=== PATIENT | male | born 1925 | race Caucasian/White ===

== ENCOUNTER 2016-12-11 10:27 | Emergency (ER) | payer OTHER, MEDICARE ==
[~2016-12-11] VITALS: Ht 180.3 cm; Wt 81.6 kg
--- NOTE | 2016-12-11 10:50 | ED PSYCHIATRIC COMPLAINT ---
See Addendum History of Present Illness General Chief Complaint: Psychiatric Related Complaint Stated Complaint: HALLUCINATIONS X 1 MONTH Source: patient, family Exam Limitations: no limitations Vital Signs & Intake/Output Vital Signs & Intake/Output Vital Signs Date Time Temp Pulse Resp B/P Pulse O2 O2 Flow FiO2 Ox Delivery Rate 12/12 0611 96.6 73 20 125/60 96 Room Air 12/12 0303 98.2 72 20 120/62 96 Room Air 12/11 2346 97.6 65 20 123/56 95 Room Air 12/11 2017 98.0 84 20 132/60 98 Room Air 12/11 1849 98 Room Air 12/11 1838 97.0 84 20 130/65 94 Room Air 12/11 1649 96.9 89 18 120/55 96 Room Air 12/11 1503 98.0 90 18 149/66 98 Room Air 12/11 1320 99.0 84 18 180/79 96 Room Air 12/11 1147 95 Room Air 12/11 1141 97.0 90 160/88 12/11 1033 98.0 81 18 154/80 97 Room Air Room Air ED Intake and Output 12/12 0000 12/11 1200 Intake Total Output Total Balance Patient 180 lb Weight Allergies Coded Allergies: No Known Allergies (12/11/16) Reconcile Medications Esomeprazole (Nexium) 40 MG CAPSULE.DR 1 CAP PO DAILY GI (Reported) Hydrochlorothiazide 25 MG TABLET 1 TAB PO DAILY WATER PILL (Reported) Metoprolol Succinate 50 MG TAB.ER.24H 1 TAB PO DAILY HEART (Reported) Quinapril HCl 20 MG TABLET 1 TAB PO DAILY UNKNOWN (Reported) Rivaroxaban (Xarelto) 20 MG TABLET 1 TAB PO DAILY BLOOD THINNER (Reported) with food Simvastatin (Simvastatin*) 80 MG TABLET 1 TAB PO DAILY CHOLESTEROL (Reported) Triage Note: TRIAGE: 89 Y/O MALE PRESENTS WITH BROTHER AND NIECE TODAY. BROTHER REPORTS PATIENT CALLED LAST NIGHT TO SLEEP OVER HIS HOUSE BECAUSE "ALL OF THE BEDS WERE OCCUPIED AT HIS RESIDENCE." * PATIENT LIVES AT HOME ALONE. FAMILY REPORTS PATIENT "HALLUCINATING" X 1 MONTH. DENIES SUICIDALITY OR HOMICIDALITY. REPORTS, "I'M A DEVOUT COWARD." Triage Nurses Notes Reviewed? yes HPI: 89-year-old male arrives through triage to room 13 with his family for evaluations of hallucinations for one month. Family reports that he has been saying that people are in his house and making too much noise or that he can't sleep so he is going to his brother's house because there are too many people here. Keturah denies any of this. He does seem to have some memory issues but denies depression, anxiety, SI, HI. He denies any physical complaints. He denies chest pain, shortness of breath, lightheadedness, dizziness or palpitations. He reports he does well at home and cooks and makes his own food. He said reports he has no problems dressing himself. Family has voiced concern of safety with him at home but will stay with him if needed. 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 (SISI JUDGE APRN) Past History Travel History Traveled to [place] past 21 day No Medical History Any Pertinent Medical History? see below for history Cardiovascular: AFIB, hypertension, hyperlipidemia, [place] ?2010 Surgical History Surgical History: unobtainable Psychosocial History What is your primary language Amharic Tobacco Use: Quit >30 days ago ETOH Use: occasional use Illicit Drug Use: denies illicit drug use Family History Hx Contributory? No (SISI JUDGE APRN) Review of Systems Review of Systems Constitutional: Reports: no symptoms. EENTM: Reports: no symptoms. Respiratory: Reports: no symptoms. Cardiovascular: Reports: no symptoms. GI: Reports: no symptoms. Genitourinary: Reports: no symptoms. Musculoskeletal: Reports: no symptoms. Skin: Reports: no symptoms. Neurological/Psychological: Reports: no symptoms. Hematologic/Endocrine: Reports: no symptoms. Immunologic/Allergic: Reports: no symptoms. All Other Systems: Reviewed and Negative (SISI JUDGE APRN) Physical Exam Physical Exam General Appearance: well developed/nourished, mild distress Head: atraumatic Eyes: Bilateral: PERRL, EOMI. Ears, Nose, Throat: normal pharynx, normal ENT inspection, hearing grossly normal Neck: normal inspection, supple Respiratory: normal breath sounds Cardiovascular: regular rate/rhythm, irregularly irregular Gastrointestinal: soft, non-tender Extremities: normal range of motion Neurological/Psychiatric: no motor/sensory deficits, awake, alert, normal mood/ affect, calm Appearance/Memory/Insight: appropriate appearance, denies illness Behavoir/Eye Contact/Speech: cooperative, normal speech Thoughts/Hallucinations: delusions, visual hallucinations Skin: intact, normal color, warm/dry SAD PERSONS Done? patient not suicidal (SISI JUDGE APRN) Progress Differential Diagnosis: dementia, electrolyte abnormality, paranoia Plan of Care: Orders Procedure Date/time Status Regular Diet 12/12 B Active Continuous Observation Monitor 12/11 125 Active ED CRISIS PSYCH CONSULT 12/11 125 Active CULTURE,URINE 12/11 104 Active URINE DRUG SCREEN FOR ER ONLY 12/11 1048 Complete URINALYSIS 12/11 1048 Complete TROPONIN LEVEL 12/11 1048 Complete ETHANOL 12/11 104 Complete COMPREHENSIVE METABOLIC PANEL 12/11 104 Complete CBC WITHOUT DIFFERENTIAL 12/11 1048 Complete EKG 12/11 104 Active Laboratory Tests 12/11/16 1123: Anion Gap 9, Estimated GFR > 60, BUN/Creatinine Ratio 34.3 H, Glucose 95, Calcium 9.3, Total Bilirubin 0.7, AST 25, ALT 37, Alkaline Phosphatase 95, Troponin I < 0.01, Total Protein 6.5, Albumin 3.6, Globulin 2.9, Albumin/ Globulin Ratio 1.2, CBC w Diff NO MAN DIFF REQ, RBC 4.02 L, MCV 99.5 H, MCH 33.0 H, RDW 14.4, MPV 7.7, Gran % 60.8, Lymphocytes % 30.0, Monocytes % 6.2, Eosinophils % 2.6, Basophils % 0.4, Absolute Granulocytes 4.0, Absolute Lymphocytes 1.9, Absolute Monocytes 0.4, Absolute Eosinophils 0.2, Absolute Basophils 0, PUBS MCHC 33.1, Serum Alcohol < 10.0 12/11/16 1112: Urine Opiates Screen < 100.00, Methadone Screen < 40, Barbiturate Screen < 60, Ur Phencyclidine Scrn < 6.00, Amphetamines Screen < 100, U Benzodiazepines Scrn < 85, Urine Cocaine Screen < 50, Urine Cannabis Screen < 5.00, Urine Color YEL, Urine Clarity CLEAR, Urine pH 6.0, Ur Specific [place] >= 1.030, Urine Protein NEG, Urine Ketones TRACE H, Urine Nitrite NEG, Urine Bilirubin NEG@ICTO, Urine Urobilinogen 0.2, Ur Leukocyte Esterase NEG, Ur Microscopic EXAM NOT REQUIRED, Urine Hemoglobin NEG, Urine Glucose NEG Microbiology 12/12 1111 URINE ROUT: Urine Culture - RECD Diagnostic Imaging: Viewed by Me: Radiology Read. Discussed w/RAD: Radiology Read. Initial ED EKG: AFIB Prior EKG: unchanged Hand-Off Endorsed To: YADIRA LAMB MD Endorsed Time: 2045 Pending: other (bed search) Comments: PATIENT: KETURAH OWEN PRESENT AGE: 89 PATIENT ACCOUNT NO: [id number] : [birth year] LOCATION: ER ORDERING PHYSICIAN: SISI JUDGE APRN SERVICE DATE: 12/11/16 EXAM TYPE: RAD - XRY-CHEST XRAY, PA AND LATERAL EXAMINATION: XR CHEST CLINICAL INFORMATION: 89-year-old man with pneumonia. COMPARISON: None TECHNIQUE: 2 views of the chest were obtained. FINDINGS: The lungs are relatively well expanded. Diffuse reticular opacities suggest chronic interstitial lung disease. No focal consolidation or overt pulmonary edema is appreciated. There is mild to moderate cardiomegaly. There are no pleural effusions. Degenerative changes are seen throughout the thoracic spine with flowing anterior marginal osteophytes. IMPRESSION: No convincing radiographic evidence of an acute cardiopulmonary process. DICTATED BY: HANH AQUINO MD DATE/TIME DICTATED:12/11/161305 COMPUTATIONAL THEORY SCIENTIST:ORLY DATE/TIME TRANSCRIBED:12/11/161305 CONFIDENTIAL, DO NOT COPY WITHOUT APPROPRIATE AUTHORIZATION. <Electronically signed in Other Vendor System> SIGNED BY: HANH AQUINO MD 12/11/16 1310 PATIENT: KETURAH OWEN PRESENT AGE: 89 PATIENT ACCOUNT NO: [id number] : [birth year] LOCATION: [facility] ORDERING PHYSICIAN: SISI JUDGE APRN SERVICE DATE: 12/11/16 EXAM TYPE: CAT - CT HEAD WO IV CONTRAST EXAMINATION: CT HEAD WITHOUT CONTRAST CLINICAL INFORMATION: 89-year-old woman with hallucinations. COMPARISON: None TECHNIQUE: Contiguous axial imaging was performed from the skull base to vertex without intravenous administration of contrast. DLP: 672 mGy-cm FINDINGS: No intracranial mass, hemorrhage, midline shift, or extra-axial collection is appreciated. 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 The ventricles and sulcal spaces are diffusely prominent due to chronic volume loss. The paranasal sinuses are well aerated. IMPRESSION: No acute intracranial pathology. DICTATED BY: HANH AQUINO MD DATE/TIME DICTATED:12/11/161208 COMPUTATIONAL THEORY SCIENTIST:ORLY DATE/TIME TRANSCRIBED:12/11/161208 CONFIDENTIAL, DO NOT COPY WITHOUT APPROPRIATE AUTHORIZATION. <Electronically signed in Other Vendor System> SIGNED BY: HANH AQUINO MD 12/11/16 1214 2:44pm- crisis doing a geriatric bed search for diagnosis of neurocognitive disorder with psychosis. Patient overall doing well with no physical complaints. (SISI JUDGE APRN) Comments: 12/12/2016 7:14:40 AM patient signed out to Dr. Koehler after an uneventful emergency department stay overnight. (ZAINAB CHE,YADIRA Darden) Departure Departure Time of Disposition: 2045 Disposition: STILL A PATIENT Condition: Stable Clinical Impression Primary Impression: Neurocognitive disorder Referrals: RACH CORTES MD (PCP/Family) Departure Forms: Customer Survey General Discharge Information (SISI JUDGE APRN)
[2016-12-11] MEDS ORDERED: METOPROLOL SUCC50 M2 PO (11:14)
[2016-12-11] MEDS ORDERED: SIMVASTATIN80 M1 PO (11:14)
[2016-12-11] MEDS ORDERED: NEXIUM40 M1 PO (11:14)
[2016-12-11] MEDS ORDERED: HYDROCHLOROTHIA25 M1 PO (11:15)
[2016-12-11] MEDS ORDERED: QUINAPRIL HCL20 M1 PO (11:15)
[2016-12-11] MEDS ORDERED: XARELTO20 M2 PO (11:16)
[2016-12-11 11:33] LABS: ABSOLUTE BASOPHIL COUNT 0 /CUMM (0.0-0.2); ABSOLUTE EOSINOPHIL COUNT 0.2 /CUMM (0.0-0.7); ABSOLUTE LYMPH COUNT 1.9 /CUMM (1.2-3.4); ABSOLUTE MONOCYTE COUNT 0.4 /CUMM (0.10-0.60); BASOPHIL % 0.4 % (0.0-2.0); EOSINOPHIL % 2.6 % (0-5); GRANULOCYTE % 60.8 % (42.2-75.2); MEAN CORPUSCULAR HGB CONC 33.1 G/DL (33.0-37.0); MEAN CORPUSCULAR VOLUME 99.5 FL (80.0-94.0); MEAN PLATELET VOLUME 7.7 FL (7.4-10.4); PLATELET COUNT 184 /CUMM (130-400); RBC DISTRIBUTION WIDTH 14.4 % (11.5-14.5); RED BLOOD CELL CT 4.02 /CUMM (4.70-6.10); WHITE BLOOD CELL COUNT 6.5 /CUMM (4.8-10.8)
--- NOTE | 2016-12-11 12:14 | CT SCAN REPORT ---
EXAMINATION: CT HEAD WITHOUT CONTRAST CLINICAL INFORMATION: 89-year-old woman with hallucinations. COMPARISON: None TECHNIQUE: Contiguous axial imaging was performed from the skull base to vertex without intravenous administration of contrast. DLP: 672 mGy-cm FINDINGS: No intracranial mass, hemorrhage, midline shift, or extra-axial collection is appreciated. 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 The ventricles and sulcal spaces are diffusely prominent due to chronic volume loss. The paranasal sinuses are well aerated. IMPRESSION: No acute intracranial pathology.
--- NOTE | 2016-12-11 13:10 | RADIOLOGY REPORT ---
EXAMINATION: XR CHEST CLINICAL INFORMATION: 89-year-old man with pneumonia. COMPARISON: None TECHNIQUE: 2 views of the chest were obtained. FINDINGS: The lungs are relatively well expanded. Diffuse reticular opacities suggest chronic interstitial lung disease. No focal consolidation or overt pulmonary edema is appreciated. There is mild to moderate cardiomegaly. There are no pleural effusions. Degenerative changes are seen throughout the thoracic spine with flowing anterior marginal osteophytes. IMPRESSION: No convincing radiographic evidence of an acute cardiopulmonary process.
--- NOTE | 2016-12-11 13:55 | ED PSYCH CRISIS CONSULTATION ---
See Addendum Crisis Consult Basic Assessment Date of Consult: 12/11/16 Responsible Person/Accompanied By: self/brother cecil and pat parker Insurance Authorization: Insurance #1: Insurance name: MEDICARE A Phone number: Policy number: [id number] Group number: Authorization number: ED Provider: Patient's ED Provider: SISI JUDGE APRN Primary Care Physician: Patient's PCP: RACH CORTES MD PCP's Current Psychiatrist: none Chief Complaint: Psychiatric Related Complaint Patient's Quote: I sometimes think i see people but i guess they are not there Present Illness: Pt is an 89 yo male presenting at [facility] ED this morning with reports of hallucinations starting about 4 weeks ago. Pt his accompanied by his brother Cecil and pat Parker who were able to provide collateral. Over the past month pt reporting to his brother that he is seeing people in his house/people are sleeping in his house/people are trying to break into his house. Brother reports these statements are becoming more frequent and stated that when pt drove to his house this morning at 7a to report same he contacted Pt PCP Dr Cortes who instructed to go to ED for evaluation. Pt lives by himself and infrequently has guests in his house. Pt has no reported psychiatric hx. Pt has no reported in home health aid. Pt has no hx of si/hi and no current si/hi. Pt denies depression or anxiety. Pt reports infrequent alcohol use and no substance abuse hx. Pt reports eating 2 meals per day but noted that he has been losing wt. Pt appears to not be giving proper attentions to adls. Pt is a and retired [employer]. Patient's Address: [address] [place] [address] Other Who Do You Live With? Patient/Self Family/Informants Interviewed: brother Cecil [phone] and pat Parker provided collateral. They expressed concern that pt is hallucinating and paranoid. They began to notice symptoms about 4 wks ago. Pt has no prior psychiatric history. Heike thinks he is staring to get dementia. they don't believe pt is a risk to harm self or others. Allergies - Coded Allergies: No Known Allergies (12/11/16) Current Medications - Scheduled Medications Esomeprazole (Nexium) 40 MG CAPSULE.DR 1 CAP PO DAILY GI #30 (Reported) Entered as Reported by PERI CHAKRABORTY on 12/11/16 1114 Hydrochlorothiazide 25 MG TABLET 1 TAB PO DAILY WATER PILL #30 (Reported) Entered as Reported by PERI CHAKRABORTY on 12/11/16 1115 Metoprolol Succinate 50 MG TAB.ER.24H 1 TAB PO DAILY HEART #30 (Reported) Entered as Reported by PERI CHAKRABORTY on 12/11/16 1114 Quinapril HCl 20 MG TABLET 1 TAB PO DAILY UNKNOWN #90 (Reported) Entered as Reported by PERI CHAKRABORTY on 12/11/16 1115 Rivaroxaban (Xarelto) 20 MG TABLET 1 TAB PO DAILY BLOOD THINNER #30 (Reported ) Entered as Reported by PERI CHAKRABORTY on 12/11/16 1116 Simvastatin (Simvastatin*) 80 MG TABLET 1 TAB PO DAILY CHOLESTEROL #30 ( Reported) Entered as Reported by PERI CHAKRABORTY on 12/11/16 1114 Laboratory Results: Laboratory Tests 12/11/16 1123: Anion Gap 9, Estimated GFR > 60, BUN/Creatinine Ratio 34.3 H, Glucose 95, Calcium 9.3, Total Bilirubin 0.7, AST 25, ALT 37, Alkaline Phosphatase 95, Troponin I < 0.01, Total Protein 6.5, Albumin 3.6, Globulin 2.9, Albumin/ Globulin Ratio 1.2, CBC w Diff NO MAN DIFF REQ, RBC 4.02 L, MCV 99.5 H, MCH 33.0 H, RDW 14.4, MPV 7.7, Gran % 60.8, Lymphocytes % 30.0, Monocytes % 6.2, Eosinophils % 2.6, Basophils % 0.4, Absolute Granulocytes 4.0, Absolute Lymphocytes 1.9, Absolute Monocytes 0.4, Absolute Eosinophils 0.2, Absolute Basophils 0, PUBS MCHC 33.1, Serum Alcohol < 10.0 12/11/16 1112: Urine Opiates Screen < 100.00, Methadone Screen < 40, Barbiturate Screen < 60, Ur Phencyclidine Scrn < 6.00, Amphetamines Screen < 100, U Benzodiazepines Scrn < 85, Urine Cocaine Screen < 50, Urine Cannabis Screen < 5.00, Urine Color YEL, Urine Clarity CLEAR, Urine pH 6.0, Ur Specific [place] >= 1.030, Urine Protein NEG, Urine Ketones TRACE H, Urine Nitrite NEG, Urine Bilirubin NEG@ICTO, Urine Urobilinogen 0.2, Ur Leukocyte Esterase NEG, Ur Microscopic EXAM NOT REQUIRED, Urine Hemoglobin NEG, Urine Glucose NEG Microbiology 12/11 1112 URINE ROUT: Urine Culture - RECD Past History Past Medical History Cardiovascular: hypertension, hyperlipidemia, [place] ?2009 Psychosocial History Strengths/Capabilities: lives independently/retired [employer] Psychiatric Treatment History Psych Treatment Psychiatric Treatment No Inpatient Treatment No Outpatient Treatment No Diagnosis by History: na Substance Use/Abuse History Drug Use/Abuse Substances Used/Abused No Substance Abuse Treatment Substance Abuse Treatment Past Substance Abuse [place] No Current Mental Status Mental Status Orientation: Confused Affect: WNL Speech: WNL Neuro-vegetative: Appetite Decreased, Concentration Poor, Sleep Disturbance Appearance Appearance- Dress/Hygiene: hospital scrubs, laying in bed during consult. friendly and engaged. Difficulty hearing. Need to speak into his right ear. Behaviors Thought Process: Disorganized Thought Content: Paranoid, Visual Hallucinations Memory: Impaired Insight: Fair SI/HI Risk Assessment Past Suicidal Ideation/Attempts No Current Suicidal Ideation/Att No Past Homicidal Ideation/Att: No Current Homicidal Ideation/Attempts No Degree of Intent: None Gravely Disabled: Inability Risk Factors: age (under 24/over 65), lives alone, male Lethality Ratin (mild) PTSD Checklist PTSD Done? patient declined ED Management Sitter: Yes Restraints: No DSM5/PS Stressors/Medical Prob Diagnosis' (DSM 5, Stressors, Medical): Major Neurocognitive d/o with psychosis poor attention to adls Current GAF: 25 Comments: reported onset of paranoia/hallucinations 1 month. No prior psychiatric history. Departure Disposition Psych Medical Clearance Date: 12/11/16 Medically Cleared at: 1245 Time Started: 1250 Time Ended: 1330 Psychiatrist Consulted: Mukul Swann MD Date Disposition Established: 12/11/16 Time Disposition Established: 1400 Plan for Disposition - Modality: Bed Search Rationale for Disposition: Increased behavioral disturbance, paranoia and hallucinations. Pt not able to properly care for self at this time. Pt placed on a PEC and informed that a bed search is required for an inpatient admission. Type of IP Admission: PEC Referrals RACH CORTES MD (PCP/Family)
--- NOTE | 2016-12-11 17:12 | ED PSYCHIATRIST/APRN CONSULT ---
Psychiatrist/SURVEYOR INSTRUMENT ASSISTANT ED Consult Assessment and Plan: Pt seen after speaking with crisis. Pt very hard of hearing. He was unsure about AVHs but acknowledging were occuring. He did note that he did think that someone was trying to break into his house on mulitple occasions. Very distressed by this. Feels started recently but could not specify. Denies depression or lisset. +AVHs, + delusions. Pt was malodorous. Described typical meal as microwave sweet potato (after speaking at length about the difference between sweet pototoes and yams). Spoke with brother and niece. They live about 20 mins away from pt. Last week, pt called at 3am and left a long rambling message about someone breaking in. This morning at 7am, pt came over and was adamant someone was breaking in. As they were concerned, brought him to the hospital. Pt was very upset about this. Pt has not allowed family in house for 8 years except for his brother. Brother stated very messy and dirty. Given worsening psychotic sx with bizzare behaviors over the past month as well as concern about pt's ability to life by himself, gravely disabled. PEC filled out on 12/11/2016 Called SHERRY at [facility] to notify that in ED and looking for bed. Pt does not get any psych care from the [facility] at this time.
--- NOTE | 2016-12-12 13:07 | ED PSYCHIATRIST/APRN CONSULT ---
Psychiatrist/ARTS AND CRAFTS INSTRUCTOR ED Consult Assessment and Plan: Pt seen for 24h eval. Pt notes that he is "relaxed" here. No stating he is unsure if actually heard anything, but even if he did, he did not act on it. Reminded him that he did call his brother and did show up to his brothers house distressed by the intruders. He is amenable to medication. MSE: younger than stated age, slightly malordorous, cooperative, good eye contact, very poor hearing as does not have his hearing aid in, mood "relaxed," affect joking at times, full range, appropriate, non-labile, tangenital thought process at times, denies SI or HI, ?AVHs of intruders at home, denies occuring here, does not appear to be responding to internal stimuli, I/J: limited PEC filled out on 12/11/2016 Awaiting Geropsych bed placement HO to restart home meds To add seroquel 12.5mg qhs for paranoia and AVHs
[2016-12-12 13:12] VITALS: BP 112/70
== END 2016-12-12 14:22 | disposition other institution (70) ==
LOC: ERH 10:27
PROVIDERS: Nurse Practitioner Family
DX: F01.51 Vascular dementia, unspecified severity, with behavioral disturbance (principal)
CPT/HCPCS: 80307; 81003; 87086; 93005; 93010; G0463; G0480

== ENCOUNTER 2017-01-28 20:30 | Inpatient (IN) | payer OTHER, MEDICARE ==
[~2017-01-28] VITALS: Ht 177.8 cm; Wt 69.4 kg
[~2017-01-28 20:30] MED LIST: HYDROCHLOROTHIA25 M1 PO; METOPROLOL SUCC50 M2 PO; NEXIUM40 M1 PO; QUINAPRIL HCL20 M1 PO; SIMVASTATIN80 M1 PO; XARELTO20 M2 PO
--- NOTE | 2017-01-28 20:55 | ED GENERAL ADULT ---
See Addendum History of Present Illness General Chief Complaint: Fever Stated Complaint: BIBA FEVER, CONGESTED COUGH Source: patient, old records Exam Limitations: dementia Vital Signs & Intake/Output Vital Signs & Intake/Output Vital Signs Date Time Temp Pulse Resp B/P B/P Pulse O2 O2 Flow FiO2 Mean Ox Delivery Rate 01/28 2355 99.2 71 18 114/70 01/28 2306 97.0 70 16 92/54 96 Room Air 01/28 2259 99.2 88 16 92/50 95 Room Air 01/28 2248 90 16 84/46 96 Room Air 01/28 2226 99.3 01/28 2155 100.9 01/28 2154 100.9 01/28 2130 Room Air 01/28 2125 101.7 01/28 2049 101.7 80 16 122/60 94 Room Air ED Intake and Output 01/29 0000 01/28 1200 Intake Total Output Total 10 Balance -10 Output, Urine 10 Patient 140 lb Weight Weight Estimated Measurement Method Allergies Coded Allergies: No Known Allergies (12/11/16) Reconcile Medications Donepezil HCl (Aricept) 5 MG TABLET 1 TAB PO QHS MEMORY (Reported) Hydrochlorothiazide 25 MG TABLET 1 TAB PO DAILY WATER PILL (Reported) Metoprolol Succinate 50 MG TAB.ER.24H 1 TAB PO DAILY HEART (Reported) Pantoprazole Sodium 40 MG TABLET.DR 1 TAB PO DAILY GERD (Reported) Quetiapine Fumarate (Seroquel) 50 MG TABLET 1 TAB PO QHS ANXIETY (Reported) Quinapril HCl 20 MG TABLET 1 TAB PO DAILY BP (Reported) Rivaroxaban (Xarelto) 20 MG TABLET 1 TAB PO DAILY BLOOD THINNER (Reported) with food Simvastatin (Simvastatin*) 80 MG TABLET 1 TAB PO QHS CHOLESTEROL (Reported) Trazodone HCl 50 MG TABLET 1 TAB PO QHS UNKNOWN (Reported) Triage Note: BIBA FROM [facility] FOR ?AMS, PT WITH BASELINE HX DEMENTIA/ALZHEIMERS. TEMP 101.7 AND STAFF REPORTED TO EMS THERE WAS NOTHING THEY COULD GIVE HIM. ARRIVES ALERT, ABLE TO CONVERSATE APPROPRIATELY WITH STAFF. DENIES PAIN. DENIES CP/SOB AND OFFERS NO COMPLAINTS. DENIES GI/ SYMPTOMS. CLEAN CATCH URINE OBTAINED ON ARRIVAL. SKIN WARM, DRY, INTACT. LUNG SOUNDS SLIGHTLY WHEEZY TO LEFT BASE. O2 SAT 94% RA Triage Nurses Notes Reviewed? yes Onset: Gradual Duration: constant Timing: single episode today Injury Environment: home Severity: moderate Severity Numbers: 5 HPI: Patient is a 89-year-old male with a past medical history of Alzheimer's dementia, GERD, hypertension, and is currently ON XARELTO FOR AFIB in which history is limited due to patient's dementia however EMS state that patient was brought in from [facility] for concerns of altered mental status and fever with unknown source. Patient is currently without complaints and denies any fevers headache blurred vision abdominal pain shortness of breath. Patient does state that he has a chronic intermittent cough (JOANIE LEO) Past History Travel History Traveled to [facility] past 21 day No Medical History Any Pertinent Medical History? see below for history Neurological: Alzheimer's disease, dementia EENT: NONE Cardiovascular: AFIB, hypertension, hyperlipidemia, [place] ?2009 Respiratory: NONE Gastrointestinal: NONE Hepatic: NONE Renal: NONE Musculoskeletal: NONE Psychiatric: NONE Endocrine: NONE Blood Disorders: NONE Cancer(s): NONE Surgical History Surgical History: unobtainable Psychosocial History Who do you live with Patient/Self What is your primary language [place] Tobacco Use: Never used Family History Hx Contributory? No (JOANIE LEO) Review of Systems Review of Systems Constitutional: Reports: see HPI, fever. EENTM: Reports: no symptoms. Respiratory: Reports: see HPI, cough. Cardiovascular: Reports: no symptoms. GI: Reports: no symptoms. Genitourinary: Reports: no symptoms. Musculoskeletal: Reports: no symptoms. Skin: Reports: no symptoms. Neurological/Psychological: Reports: no symptoms. Hematologic/Endocrine: Reports: no symptoms. Immunologic/Allergic: Reports: no symptoms. All Other Systems: Reviewed and Negative (JOANIE LEO) Physical Exam Physical Exam General Appearance: no apparent distress, alert, comfortable Comments: HEENT: Normal EENT exam, extraocular motion intact, no nystagmus. Pupils equally round and reactive to light and accommodation. Nose is atraumatic. External auditory canal and Tympanic membranes clear. Pharynx normal. No swelling or edema. Neck: Supple, no lymphadenopathy, normal range of motion without pain or tenderness Back: Nontender, no CVA tenderness. Cardiovascular: IRRegular rate no murmurs rubs or gallops, normal JVP Respiratory: Chest nontender. No respiratory distress. Bilateral clear lungs to auscultation Abdomen: Soft, nontender nondistended, no appreciable organomegaly. Normal bowel sounds. No ascites Extremity: No edema, no calf tenderness to palpation, normal and equal pulses. Neuro: Alert, motor sensory normal, Skin: No appreciable rash on exposed skin, skin is warm and dry. Psych: Mood and affect is normal, memory and judgment is normal. Core Measures ACS in differential dx? No CVA/TIA Diagnosis: No Severe Sepsis Present: No Septic Shock Present: No (MARIA ISABEL CURRY,JOANIE) Progress Differential Diagnoses I considered the following diagnoses in my evaluation of the patient: [Sepsis, pneumonia, URI, myocardial infarction, cellulitis, PTX, PE,UTI,CVA ] Plan of Care: Orders Procedure Date/time Status LACTIC ACID 01/29 10 Active EKG 01/28 2118 Active Add-on Test (ER Only) 01/28 2110 Active BLOOD CULTURE 01/28 2110 Active TROPONIN LEVEL 01/28 2110 Complete LACTIC ACID 01/28 2110 Complete COMPREHENSIVE METABOLIC PANEL 01/28 2110 Complete CBC WITHOUT DIFFERENTIAL 01/28 2110 Complete CULTURE,URINE 01/29 2048 Active URINALYSIS 01/29 2048 Complete Current Medications Sig/Dora Start time Last Medication Dose Stop Time Status Admin Azithromycin 500 MG DAILY 01/29 1000 UNVr (Zithromax) Sodium Chloride 250 ML (Normal Saline 0.9%) Laboratory Tests 01/28/172114: Anion Gap 7, Estimated GFR > 60, BUN/Creatinine Ratio 25.0, Glucose 109 H, Lactic Acid 1.2, Calcium 8.4, Total Bilirubin 0.8, AST 24, ALT 40, Alkaline Phosphatase 86, Troponin I 0.01, Total Protein 6.1 L, Albumin 3.5, Globulin 2.6 , Albumin/Globulin Ratio 1.3, CBC w Diff NO MAN DIFF REQ, RBC 3.96 L, MCV 98.6 H, MCH 33.3 H, RDW 14.0, MPV 8.1, Gran % 78.1 H, Lymphocytes % 14.6 L, Monocytes % 6.7, Eosinophils % 0.1, Basophils % 0.5, Absolute Granulocytes 5.4, Absolute Lymphocytes 1.0 L, Absolute Monocytes 0.5, Absolute Eosinophils 0, Absolute Basophils 0, PUBS MCHC 33.8 01/28/172047: Urine Color YEL, Urine Clarity CLEAR, Urine pH 6.0, Ur Specific [place] >= 1.030 , Urine Protein 100 H, Urine Ketones NEG, Urine Nitrite NEG, Urine Bilirubin NEG, Urine Urobilinogen 1.0, Ur Leukocyte Esterase NEG, Ur Microscopic SEDIMENT EXAMINED, Urine RBC RARE, Ur Epithelial Cells RARE, Urine Bacteria MANY H, Urine Hemoglobin SMALL H, Urine Glucose NEG Microbiology 01/28 2125 BLOOD: Blood Culture - RECD 01/28 2115 BLOOD: Blood Culture - RECD 01/29 2048 URINE ROUT: Urine Culture - RECD Patient understood examination has unremarkable Patient had nontender abdomen clear lungs to auscultation and was alert and oriented at baseline. Patient followed all commands and shows no neurovascular deficit. Patient had resolution of fever chest x-ray is unremarkable urine does show concerns of urinary tract infection It was noted to be the patient became hypotensive prior to discharge AND NOW WILL IV liters of fluid resuscitation will be ordered. Dr. Cortes was paged for concerns of admission. Discussed hand up with Dr. SALAZAR who will take over patient's care (MARIA ISABEL CURRY,JOANIE) Diagnostic Imaging: Viewed by Me: Radiology Read. Radiology Impression: no acute abnormality Initial ED EKG: AFIB (81 BPM) Hand-Off Endorsed To: YADIRA SALAZAR DO ([facility]) Endorsed Time: 2345 Pending: other (ADMISSION) Comments: PATIENT: KETURAH OWEN PRESENT AGE: 89 PATIENT ACCOUNT NO: [id number] : [birth year] LOCATION: [facility] ORDERING PHYSICIAN: JOANIE CURRY SERVICE DATE: 01/28/17 EXAM TYPE: RAD - XRY-CHEST XRAY, PA AND LATERAL EXAMINATION: CHEST 2 VIEWS CLINICAL INFORMATION: Cough, fever. COMPARISON: 12/11/2016. TECHNIQUE: PA and lateral views of the chest were obtained. FINDINGS: The cardiac silhouette is not enlarged. The mediastinal and hilar contours are unremarkable. There are neither pleural effusions nor pneumothoraces. There are no consolidations. The lungs are hyperinflated. The osseous structures are unremarkable. IMPRESSION: No evidence for acute disease. Lung hyperinflation. DICTATED BY: JOSEPH MENDES MD DATE/TIME DICTATED:01/28/172216 COMMUNITY HEALTH ADVISOR:ORLY (JOANIE LEO) Differential Diagnoses I considered the following diagnoses in my evaluation of the patient: (YADIRA SALAZAR DO) Departure Departure Disposition: STILL A PATIENT Condition: Stable Clinical Impression Primary Impression: UTI (urinary tract infection) Secondary Impressions: Fever, Hypotension Referrals: RACH CORTES MD (PCP/Family) Departure Forms: Customer Survey General Discharge Information Admission Note Documentation of Exam: Documentation of any treatments & extenuating circumstances including Concerns Regarding Discharge (functional status, medication knowledge or non-compliance, living conditions, etc.) that warrant an admission rather than observation: [ Patient requires IV fluids, IV antibiotics, repeat labs, blood cultures and urine culture currently pending.] (JOANIE LEO) Admission Note Documentation of Exam: Documentation of any treatments & extenuating circumstances including Concerns Regarding Discharge (functional status, medication knowledge or non-compliance, living conditions, etc.) that warrant an admission rather than observation: 01/29/17 12:50 AM The patient was signed out to me by Joanie Pinzon to admit the patient. I have seen and personally examined the patient is a 89-year-old male who comes from group home for cough and congestion and altered mental status. His chest x- ray was unremarkable he does have scattered rhonchi. His urinalysis showed many bacteria. White blood cell count was normal. Lactic acid level was negative. He was for discharge but dropped his blood pressure. He received IV fluids and his blood pressures improving. He is being admitted to the hospital to exclude the diagnosis of sepsis. He received IV antibiotics. (YADIRA SALAZAR DO) Critical Care Note Critical Care Note Critical Care Time: 30-74 min (JOANIE LEO)
[2017-01-28] MEDS ORDERED: TRAZODONE HCL50 M1 PO (21:19)
[2017-01-28] MEDS ORDERED: ARICEPT5 M1 PO (21:19)
[2017-01-28] MEDS ORDERED: PANTOPRAZOLE SO40 M1 PO (21:22)
[2017-01-28] MEDS ORDERED: SEROQUEL50 M1 PO (21:23)
[2017-01-28 21:42] LABS: ABSOLUTE BASOPHIL COUNT 0 /CUMM (0.0-0.2); ABSOLUTE EOSINOPHIL COUNT 0 /CUMM (0.0-0.7); ABSOLUTE GRANULOCYTE CT 5.4 /CUMM (1.4-6.5); ABSOLUTE MONOCYTE COUNT 0.5 /CUMM (0.10-0.60); BASOPHIL % 0.5 % (0.0-2.0); EOSINOPHIL % 0.1 % (0-5); GRANULOCYTE % 78.1 % (42.2-75.2); HEMATOCRIT 39.1 % (42-52); MEAN CORPUSCULAR HGB 33.3 PG (27.0-31.0); MEAN CORPUSCULAR HGB CONC 33.8 G/DL (33.0-37.0); MEAN CORPUSCULAR VOLUME 98.6 FL (80.0-94.0); MEAN PLATELET VOLUME 8.1 FL (7.4-10.4); PLATELET COUNT 149 /CUMM (130-400); RED BLOOD CELL CT 3.96 /CUMM (4.70-6.10); WHITE BLOOD CELL COUNT 6.9 /CUMM (4.8-10.8)
--- NOTE | 2017-01-28 22:21 | RADIOLOGY REPORT ---
EXAMINATION: CHEST 2 VIEWS CLINICAL INFORMATION: Cough, fever. COMPARISON: 12/11/2016. TECHNIQUE: PA and lateral views of the chest were obtained. FINDINGS: The cardiac silhouette is not enlarged. The mediastinal and hilar contours are unremarkable. There are neither pleural effusions nor pneumothoraces. There are no consolidations. The lungs are hyperinflated. The osseous structures are unremarkable. IMPRESSION: No evidence for acute disease. Lung hyperinflation.
--- NOTE | 2017-01-29 01:09 | History & Physical ---
RAFA CHE,ROSETTA 01/29/17 0100: General Information and HPI MD Statement: I have seen and personally examined KETURAH SAUCEDA and documented this H&P. The patient is a 89 year old M who presented with a patient stated chief complaint of []. Source of Information: patient, old records Exam Limitations: dementia History of Present Illness: Patient is an 89-year-old male, BIBA from [facility] with history of altered mental status. According to the ED document the staff from the facility told that patient was having temperature of 101.7 and was not able to take anything orally.He developed hypotension in the emergency department, and then he was given IV fluids , and decided to be admitted. Patient was oriented to time, place and person, according to him, his visiting nurse came on tuesday and he was relatively alright. Later she found something in his chest, so CXR was done. She denies fever, chills, nausea, vomiting, chest pain, abdominal pain, dysuria. He also claims that he had an episode of diarrhea couple of days ago. He also felt occasional dizziness. Personal history -he is dependent on most of his daily activity. He smoked since the age of teenage, and quit 10 years ago. He occasionally drinks alcohol. Allergies NKDA Past medical history - Alzheimer's dementia, hypertension, hyperlipidemia, history of [place] (2009), atrial fibrillation on Xarelto , GERD, presbycusis Allergies/Medications Allergies: Coded Allergies: No Known Allergies (12/11/16) Home Med list Donepezil HCl (Aricept) 5 MG TABLET 1 TAB PO AT BEDTIME MEMORY (Reported) Hydrochlorothiazide 25 MG TABLET 1 TAB PO DAILY WATER PILL (Reported) Metoprolol Succinate 50 MG TAB.ER.24H 1 TAB PO DAILY HEART (Reported) Pantoprazole Sodium 40 MG TABLET.DR 1 TAB PO DAILY GERD (Reported) Quetiapine Fumarate (Seroquel) 50 MG TABLET 1 TAB PO AT BEDTIME ANXIETY ( Reported) Quinapril HCl 20 MG TABLET 1 TAB PO DAILY BP (Reported) Rivaroxaban (Xarelto) 20 MG TABLET 1 TAB PO DAILY BLOOD THINNER (Reported) with food Simvastatin (Simvastatin*) 80 MG TABLET 1 TAB PO AT BEDTIME CHOLESTEROL ( Reported) Trazodone HCl 50 MG TABLET 1 TAB PO AT BEDTIME antidepressant (Reported) Past History Travel History Traveled to [place] past 21 day No Medical History Neurological: Alzheimer's disease, dementia EENT: NONE Cardiovascular: AFIB, hypertension, hyperlipidemia, [place] ?2010 Respiratory: NONE Gastrointestinal: NONE Hepatic: NONE Renal: NONE Musculoskeletal: NONE Psychiatric: NONE Endocrine: NONE Blood Disorders: NONE Cancer(s): NONE Surgical History Surgical History: unobtainable Review of Systems Review of Systems Constitutional: Denies: fever, weakness. Cardiovascular: Denies: no symptoms. Respiratory: Denies: cough, short of breath, wheezing. GI: Denies: abdominal pain, diarrhea, nausea. Genitourinary: Denies: discharge, dysuria, frequency, hematuria. Comments cannt comment as patient is hard of hearing and baseline dementia Exam & Diagnostic Data Last 24 Hrs of Vital Signs/I&O Vital Signs Date Time Temp Pulse Resp B/P B/P Pulse O2 O2 Flow FiO2 Mean Ox Delivery Rate 01/29 0235 70 124/74 01/28 2355 99.2 71 18 114/70 01/28 2306 97.0 70 16 92/54 96 Room Air 01/28 2259 99.2 88 16 92/50 95 Room Air 01/28 2248 90 16 84/46 96 Room Air 01/28 2226 99.3 01/28 2155 100.9 01/28 2154 100.9 01/28 2130 Room Air 01/28 2125 101.7 01/28 2049 101.7 80 16 122/60 94 Room Air Intake & Output 01/29 0800 01/29 0000 01/28 1600 Intake Total Output Total 400 10 Balance -400 -10 Output, Urine 400 10 Patient 69.4 kg 63.503 kg Weight Weight Estimated Measurement Method Physical Exam General Appearance Alert, Oriented X3, Cooperative, No Acute Distress Skin he has redness and discoloration of skin of scrotum with ? areas of folliculitis Cardiovascular irregular Lungs bilateral wheezing in upper part of chest Abdomen Soft, No Tenderness Neurological Normal Speech, Normal Tone, Sensation Intact, hard of hearing, pupils are ? pin point but reactive Extremities No Clubbing, No Cyanosis, No Edema, Normal Pulses Vascular Normal Pulses Last 24 Hrs of Labs/William: Laboratory Tests 01/29/17 0059: Lactic Acid 0.8 01/28/172114: Anion Gap 7, Estimated GFR > 60, BUN/Creatinine Ratio 25.0, Glucose 109 H, Lactic Acid 1.2, Calcium 8.4, Total Bilirubin 0.8, AST 24, ALT 40, Alkaline Phosphatase 86, Troponin I 0.01, Total Protein 6.1 L, Albumin 3.5, Globulin 2.6 , Albumin/Globulin Ratio 1.3, Vitamin B12 Pending, Folate Pending, TSH Pending, Free T4 Pending, CBC w Diff NO MAN DIFF REQ, RBC 3.96 L, MCV 98.6 H, MCH 33.3 H, RDW 14.0, MPV 8.1, Gran % 78.1 H, Lymphocytes % 14.6 L, Monocytes % 6.7, Eosinophils % 0.1, Basophils % 0.5, Absolute Granulocytes 5.4, Absolute Lymphocytes 1.0 L, Absolute Monocytes 0.5, Absolute Eosinophils 0, Absolute Basophils 0, PUBS MCHC 33.8 01/28/172047: Urine Color YEL, Urine Clarity CLEAR, Urine pH 6.0, Ur Specific [place] >= 1.030 , Urine Protein 100 H, Urine Ketones NEG, Urine Nitrite NEG, Urine Bilirubin NEG, Urine Urobilinogen 1.0, Ur Leukocyte Esterase NEG, Ur Microscopic SEDIMENT EXAMINED, Urine RBC RARE, Ur Epithelial Cells RARE, Urine Bacteria MANY H, Urine Hemoglobin SMALL H, Urine Glucose NEG Microbiology 01/28 2125 BLOOD: Blood Culture - RECD 01/28 2115 BLOOD: Blood Culture - RECD 01/29 2048 URINE ROUT: Legionella Antigen - RES 01/29 2048 URINE ROUT: Urine Culture - RES Diagnostic Data EKG Results Hr -81, Afib CXR Results CXR - no any acute cardiopulmonary involvement Assessment/Plan Assessment: Patient is an 89-year-old male, BIBA from [facility] with history of altered mental status. According to the ED document the staff from the facility told that patient was having temperature of 101.7 and was not able to take anything orally. He developed hypotension in the emergency department, and was given IV fluids. Vital signs at the time of admission -temperature 101.7, pulse 80, respiratory rate 16, blood pressure 122/60, SPO2 94% on room air Pertinent labs -Hb -13.2,Hct-39.1 CXR - no any acute cardiopulmonary involvement Plan - Altered mental status under evaluation * We do not have complete history. Most of the history is dependence on ED records and the patient.We will call the family and facility tomorrow to get the complete information. * Patient passed bedside swallow evaluation, we will consider formal evaluation.On examination, patient is having wheezes especially in the upper 1/3 of the chest * Altered mental status, can be due to fever * We will follow TSH, vitamin B12, folic acid, electrolytes Fever under evaluation * We will send all cultures * It can be secondary to aspiration pneumonitis. We will confirm it by formal swallow evaluation and repeating the chest x-ray. * Patient has folliculitis over the skin of the scrotum. It can be site of infection too. Alzheimer's dementia -depression * We will continue donepezil, Quetiapine, trazodone. Atrial fibrillation with controlled ventricular rate * We will continue tablet Xarelto 20 milligrams daily * We will watch for the bleeding * We will reconsider this medication, as patient has tendency to fall Hypertension * Withhold hydrochlorothiazide, metoprolol, quinapril Hyperlipidemia * We will continue atorvastatin Diet -patient passed bedside swallow evaluation, still we will consider formal swallow evaluation DVT prophylaxis-ALP S/heparin CODE STATUS-FC As Ranked By This Provider Problem List: 1. Alzheimer's dementia 2. Depression 3. Hypertension 4. Hyperlipidemia 5. Fever 6. Hyponatremia 7. Atrial fibrillation Core Measures/Miscellaneous Acute Coronary Syndrome ACS Diagnosis: No Cerebrovascular Accident CVA/TIA Diagnosis: No Congestive Heart Failure CHF Diagnosis: No Venous Thromboembolism VTE Risk Factors: Age > 40 No [facility] VTE prophylaxis d/t: No contraindications No VTE Pharm Prophylaxis d/t: No contraindications VTE Diagnosis: No VTE Type: NONE VTE Confirmed by (Test): NONE Severe Sepsis Severe Sepsis Present: No Septic Shock Septic Shock Present: No Miscellaneous Documentation Attending Case Discussed With: RACH CHAVEZ MD Primary Care Physician: RACH CHAVEZ MD Patient sees these Specialists none Level of Patient Care: General Medicine [place] [facility] 01/29/17 0110: Resident Review Statement Resident Statement: examined this patient, discussed with security intern, agreed with security intern, reviewed images Other Findings: This is a 89 YO M w/PMH significant for atrial fibrillation on Xarelto, hypertension, hyperlipidemia, dementia who was brought to the hospital from [facility] ([facility]) for fever and AMS. The patient reports occasional dry cough. He denies any headache, chest pain, SOB, n/v/abdominal pain, urinary symtoms including dysuria, frequency, hesitancy. Physical examination:VS: Temperature 101.7, pulse rate 80, blood pressure 120/60 , oxygen saturation 94% on room air. AAOx3, NAD, dry mucous membranes. HEENT: HNCAT, PERRLA, EOMI. Neck: Supple, no JVD. CV: RRR, no murmur. Lungs: CTABL. Abd : NL BS, NT, ND. Extremities: No lower extremity edema. Sensation intact. Neurologic:CN 3-12 intact. NL reflexes. Pertinent lab on admission: Hemoglobin 13.2, MCV 98.6, sodium 132, potassium 3.5 , glucose 109, lactic acid 1.2, UA negative for nitrates and leukocyte esterase, positive for protein, hemoglobin and bacteria. Chest x-ray no evidence for acute disease. The patient received 2500 mg normal saline, IV azithromycin and IV ceftriaxone in the ED. Assessment/plan: -Fever: Patient presented with temperature of 101.7. He does not report any urinary respiratory symptoms. UA and x-ray negative. Labs unremarkable. He has received IV ceftriaxone and IV azithromycin in the ED. Would not initiate antibiotics at this point; will await cultures meanwhile monitor closely. Will order flu swab. -Altered mental status: Patient with history of dementia; AAO 3 at the time of our interview. Will order head CT to r/o any pathology. -Hyponatremia: Sodium 132 on admission; likely diuretic induced; will hold hydrochlorothiazide, maintain the patient on IV normal saline, will recheck levels in the morning. -History of atrial fibrillation on Xarelto: EKG on admission did not show any change from previous. Will continue the patient on [employer] Xarelto and metoprolol. -History of dementia, continue with [employer] Aricept. -History of hypertension: Will hold hydrochlorothiazide and quinapril given borderline blood pressure. -DVT prophylaxis: Patient is on Xarelto; resume depending on head CT results meanwhile ALPS. -CODE STATUS: Full code. -Case was discussed with attending Dr. Garcia who agrees with the above plan; please refer to his addendum for further recommendations. BAL GARCIA MD 01/29/17 2597: Attending Review Statement Attending Statement Attending Statement: examined this patient, agreed w/resident/PA/[employer]OVING W[employer]ER, reviewed EMR data (avail), discussed with nursing, reviewed images, amended to note Attending Assessment/Plan: Mr. Sauceda was examined. He has had waxing and waning mental status changes and at this time was unable to be interviewed. His EHR was reviewed. I'm in agreement with the plan as outlined above. His blood and urine culture should be followed closely. In addition I would obtain an influenza evaluation.
[2017-01-29 04:36] VITALS: BP 118/80
[2017-01-29 06:32] VITALS: BP 146/82
[2017-01-29 08:26] LABS: ABSOLUTE BASOPHIL COUNT 0 /CUMM (0.0-0.2); ABSOLUTE EOSINOPHIL COUNT 0 /CUMM (0.0-0.7); ABSOLUTE GRANULOCYTE CT 5.3 /CUMM (1.4-6.5); ABSOLUTE LYMPH COUNT 1.1 /CUMM (1.2-3.4); ABSOLUTE MONOCYTE COUNT 0.5 /CUMM (0.10-0.60); BASOPHIL % 0.3 % (0.0-2.0); EOSINOPHIL % 0.1 % (0-5); GRANULOCYTE % 77.2 % (42.2-75.2); HEMATOCRIT 38.1 % (42-52); MEAN CORPUSCULAR HGB 33.5 PG (27.0-31.0); MEAN CORPUSCULAR HGB CONC 34.1 G/DL (33.0-37.0); MEAN CORPUSCULAR VOLUME 98.3 FL (80.0-94.0); MEAN PLATELET VOLUME 8.4 FL (7.4-10.4); PLATELET COUNT 139 /CUMM (130-400); RBC DISTRIBUTION WIDTH 13.9 % (11.5-14.5); RED BLOOD CELL CT 3.88 /CUMM (4.70-6.10); WHITE BLOOD CELL COUNT 6.9 /CUMM (4.8-10.8)
--- NOTE | 2017-01-29 08:44 | PN- Housestaff ---
Subjective Follow-up For: Altered mental status Hyponatremia Hypokalemia Complaints: no complaints Subjective: Patient was seen and examined this morning. He is alert awake and oriented to time place and person. However he is little confused this morning. He denies any fever or chills, difficulty breathing, cough, chest pain, racing of heart He denies nausea, vomiting, abdominal pain. He denies any urinary frequency, urgency, dysuria. Vitals-temperature max 101.7, heart rate 108, blood pressure 165/90 , saturating at 92 on 2 L. Review of Systems Constitutional: Denies: chills, fever. Objective Last 24 Hrs of Vital Signs/I&O Vital Signs Date Time Temp Pulse Resp B/P B/P Pulse O2 O2 Flow FiO2 Mean Ox Delivery Rate 01/29 1008 Nasal 2.0L Cannula 01/29 0934 108 165/90 01/29 0918 92 Nasal 2.0L Cannula 01/29 0800 Nasal 2.0L Cannula 01/29 0632 98.0 78 20 146/82 87 01/29 0436 98.5 80 18 118/80 91 Room Air 01/29 0355 Room Air 01/29 0235 70 124/74 01/28 2355 99.2 71 18 114/70 01/28 2306 97.0 70 16 92/54 96 Room Air 01/28 2259 99.2 88 16 92/50 95 Room Air 01/28 2248 90 16 84/46 96 Room Air 01/28 2226 99.3 01/28 2155 100.9 01/28 2154 100.9 01/28 2130 Room Air 01/28 2125 101.7 01/28 2049 101.7 80 16 122/60 94 Room Air Intake & Output 01/29 1600 01/29 0800 01/29 0000 Intake Total 465 Output Total 402 10 Balance 63 -10 Intake, IV 225 Intake, Oral 240 Number 0 Bowel Movements Output, Stool 2 Output, Urine 400 10 Patient 69.4 kg 63.503 kg Weight Weight Reported by Patient Estimated Measurement Method Physical Exam General Appearance: Alert, Oriented X3, Cooperative, No Acute Distress HEENT: Atraumatic, PERRLA Neck: Supple, No JVD Lymphatic: Cervical nl Cardiovascular: Normal S1, Normal S2 Lungs: Normal Air Movement Abdomen: Normal Bowel Sounds, Soft, No Tenderness Extremities: No Clubbing, No Cyanosis, No Edema Vascular: Normal Pulses, Pulses Symmetrical Current Medications: Current Medications Sig/Dora Start time Last Medication Dose Route Stop Time Status Admin Acetaminophen 0 .STK-MED ONE 01/29 2128 DC PO Acetaminophen 650 MG ONCE ONE 01/28 2115 DC 01/28 PO 01/28 Albuterol Sulfate 3 ML BID 01/29 1000 AC 01/29 INH 0916 Atorvastatin Calcium 80 MG 1700 01/29 1700 AC PO Azithromycin 500 MG ONCE ONE 01/29 0100 DC 01/29 Sodium Chloride 250 ML IV 01/29 0159 0113 Ceftriaxone Sodium 0 .STK-MED ONE 01/28 2154 DC .ROUTE Ceftriaxone Sodium 1,000 MG ONCE ONE 01/28 2145 DC 01/28 IV 01/28 Donepezil HCl 5 MG AT BEDTIME 01/29 2200 AC PO Metoprolol Succinate 50 MG DAILY 01/29 1000 AC 01/29 PO 0934 Potassium Chloride 10 MEQ ONCE ONE 01/29 1230 AC IV 01/29 1231 Quetiapine Fumarate 50 MG AT BEDTIME 01/29 2200 AC PO Rivaroxaban 20 MG 1700 01/29 1700 DC PO Rivaroxaban 20 MG 1700 01/29 1700 AC PO Sodium Chloride 1,000 ML Q13H 01/29 0200 AC 01/29 IV 0445 Sodium Chloride 1,000 ML BOLUS ONE 01/28 2300 DC 01/28 IV 01/28 2359 2354 Sodium Chloride 1,000 ML BOLUS ONE 01/28 2300 DC 01/28 IV 01/28 2359 2255 Sodium Chloride 500 ML BOLUS ONE 01/28 2115 DC 01/28 IV 01/28 2214 213 Trazodone HCl 50 MG AT BEDTIME 01/29 2200 AC PO Last 24 Hrs of Lab/William Results Last 24 Hrs of Labs/Mics: Laboratory Tests 01/29/17 0645: Anion Gap 10, Estimated GFR > 60, BUN/Creatinine Ratio 25.7 H, CBC w Diff NO MAN DIFF REQ, RBC 3.88 L, MCV 98.3 H, MCH 33.5 H, RDW 13.9, MPV 8.4, Gran % 77.2 H, Lymphocytes % 15.2 L, Monocytes % 7.2, Eosinophils % 0.1, Basophils % 0.3, Absolute Granulocytes 5.3, Absolute Lymphocytes 1.1 L, Absolute Monocytes 0.5, Absolute Eosinophils 0, Absolute Basophils 0, PUBS MCHC 34.1 01/29/17 0059: Lactic Acid 0.8 01/28/172114: Anion Gap 7, Estimated GFR > 60, BUN/Creatinine Ratio 25.0, Glucose 109 H, Lactic Acid 1.2, Calcium 8.4, Total Bilirubin 0.8, AST 24, ALT 40, Alkaline Phosphatase 86, Troponin I 0.01, Total Protein 6.1 L, Albumin 3.5, Globulin 2.6 , Albumin/Globulin Ratio 1.3, Vitamin B12 462, Folate 14.3, TSH 0.561, Free T4 1.08, CBC w Diff NO MAN DIFF REQ, RBC 3.96 L, MCV 98.6 H, MCH 33.3 H, RDW 14.0, MPV 8.1, Gran % 78.1 H, Lymphocytes % 14.6 L, Monocytes % 6.7, Eosinophils % 0.1, Basophils % 0.5, Absolute Granulocytes 5.4, Absolute Lymphocytes 1.0 L, Absolute Monocytes 0.5, Absolute Eosinophils 0, Absolute Basophils 0, PUBS MCHC 33.8 01/28/172047: Urine Color YEL, Urine Clarity CLEAR, Urine pH 6.0, Ur Specific [place] >= 1.030 , Urine Protein 100 H, Urine Ketones NEG, Urine Nitrite NEG, Urine Bilirubin NEG, Urine Urobilinogen 1.0, Ur Leukocyte Esterase NEG, Ur Microscopic SEDIMENT EXAMINED, Urine RBC RARE, Ur Epithelial Cells RARE, Urine Bacteria MANY H, Urine Hemoglobin SMALL H, Urine Glucose NEG Microbiology 01/29 0735 NASOPHARYN: Influenza Virus A & B Rapid Smear - COLB 01/28 2125 BLOOD: Blood Culture - RECD 01/28 2115 BLOOD: Blood Culture - RECD 01/29 2048 URINE ROUT: Legionella Antigen - RES 01/29 2048 URINE ROUT: Urine Culture - RES Assessment/Plan Assessment: Patient is an 89-year-old male, BIBA from [facility] with history of altered mental status. According to the ED document the staff from the facility told that patient was having temperature of 101.7 and was not able to take anything orally. He developed hypotension in the emergency department, and was given IV fluids. Vital signs at the time of admission -temperature 101.7, pulse 80, respiratory rate 16, blood pressure 122/60, SPO2 94% on room air Pertinent labs -Hb -13.2,Hct-39.1 CXR - no any acute cardiopulmonary involvement Altered mental status Patient with history of dementia; AAO 3 at the time of our interview. * head CT ruled out any pathology. * We do not have complete history. Most of the history is from ED records and the patient. call the family and facility tomorrow to get the complete information. * Patient passed bedside swallow evaluation, we will consider formal evaluation. * On examination, patient is having wheezes especially in the upper part of the chest * Altered mental status, can be due to fever * We will follow TSH, vitamin B12, folic acid, electrolytes Fever Patient presented with temperature of 101.7. He does not report any urinary or respiratory symptoms. UA and chest x-ray negative. Labs unremarkable. He has received IV ceftriaxone and IV azithromycin in the ED. * Would not initiate antibiotics at this point; * will await cultures meanwhile monitor closely. * Will order flu swab. * f/u all cultures * It can be secondary to aspiration pneumonitis. We will confirm it by formal swallow evaluation. hyponatremia Sodium 132 on admission; , * maintain the patient on IV normal saline, * will recheck levels in the morning- 138 Hypokalemia Potassium 3.3 this morning Repleted k Recheck in the morning Alzheimer's dementia -depression * We will continue donepezil, Quetiapine, trazodone. Atrial fibrillation with controlled ventricular rate * We will continue tablet Xarelto 20 milligrams daily * We will watch for the bleeding Hypertension * hold quinapril for now, start quinapril if blood pressure comes up. * continue metoprolol, hctz Hyperlipidemia * We will continue atorvastatin Diet -patient passed bedside swallow evaluation DVT prophylaxis-ALP S/heparin CODE STATUS-FC Problem List: 1. Fever Pain Ratin Pain Location: n/a Pain Goal: Remain pain free Pain Plan: tylinol Tomorrow's Labs & Rationales: bep setting of hyponatremia and hypokalemia
--- NOTE | 2017-01-29 08:45 | CT SCAN REPORT ---
EXAMINATION: CT HEAD WITHOUT CONTRAST CLINICAL INFORMATION: Altered mental status. COMPARISON: 12/11/2016. TECHNIQUE: Contiguous helical images of the brain were obtained without IV contrast. Multiplanar reconstructions were performed. DLP: 2077 mGy-cm. FINDINGS: There are no pathologic extra-axial fluid collections. The lateral, third, fourth ventricles are mildly prominent, but stable, age-appropriate and concordant with the appearance of the sulci. There is no evidence for acute intraparenchymal hemorrhage or infarct. And there is periventricular low-attenuation present indicative of small vessel disease. There is neither mass nor mass effect. There is no shift of midline structures. There is mild mucosal thickening to the left maxillary sinus. The paranasal sinuses and mastoid air cells are otherwise clear. There are no osseous lesions. IMPRESSION: No evidence for acute intracranial injury. Stable age-appropriate appearance of the brain. Mild mucosal thickening to the left maxillary sinus.
--- NOTE | 2017-01-29 14:18 | Admission Certification ---
Admission Certification Certification Statement - As attending physician, I certify that at the time of - admission, based on clinical presentation, severity of - symptoms, need for further diagnostic testing and - therapeutic interventions, and risk of adverse outcomes - without in-hospital treatment, in my clinical assessment, - this patient requires an acute hospital stay for a minimum - of two nights or longer. I have also considered psychsocial - factors such as support system, advanced age, financial - issues, cognitive issues, and failed out-patient treatments, - past re-admission history, safety of patient, and lack of - compliance as applicable. Specific rationale supporting this admission is: Evaluation and treatment of significant febrile illness with change in mental status.
[2017-01-29 14:36] VITALS: BP 120/70
--- NOTE | 2017-01-29 17:49 | RADIOLOGY REPORT ---
EXAMINATION: XR PORTABLE CHEST CLINICAL INFORMATION: Wet cough, crackles and rhonchi on exam. On fluids for hyponatremia. Desaturating, now on 4 L oxygen. COMPARISON: Chest x-ray of 01/28/2017 and 12/11/2016. TECHNIQUE: Portable frontal view of the chest was obtained. FINDINGS: The cardiomediastinal silhouette is stable with mild cardiomegaly. There is mild diffuse interstitial and vascular prominence; the interstitial prominence appears to be somewhat increased compared to last study. No evidence of pleural effusions, focal consolidation or pneumothorax. No abnormal tracheal deviation. Degenerative changes are noted at the bilateral acromioclavicular joints. The regional skeleton appears intact. IMPRESSION: Changes of mild interstitial pulmonary edema. No overt pulmonary edema. No pleural effusions.
[2017-01-30 06:34] VITALS: BP 124/66
[2017-01-30 08:26] LABS: ABSOLUTE BASOPHIL COUNT 0 /CUMM (0.0-0.2); ABSOLUTE EOSINOPHIL COUNT 0 /CUMM (0.0-0.7); ABSOLUTE GRANULOCYTE CT 6.1 /CUMM (1.4-6.5); ABSOLUTE LYMPH COUNT 1.4 /CUMM (1.2-3.4); ABSOLUTE MONOCYTE COUNT 0.6 /CUMM (0.10-0.60); BASOPHIL % 0.3 % (0.0-2.0); EOSINOPHIL % 0 % (0-5); GRANULOCYTE % 75.4 % (42.2-75.2); HEMATOCRIT 37.2 % (42-52); MEAN CORPUSCULAR HGB 33.4 PG (27.0-31.0); MEAN CORPUSCULAR HGB CONC 33.8 G/DL (33.0-37.0); MEAN CORPUSCULAR VOLUME 98.8 FL (80.0-94.0); MEAN PLATELET VOLUME 8.7 FL (7.4-10.4); PLATELET COUNT 140 /CUMM (130-400); RBC DISTRIBUTION WIDTH 13.4 % (11.5-14.5); RED BLOOD CELL CT 3.76 /CUMM (4.70-6.10); WHITE BLOOD CELL COUNT 8.1 /CUMM (4.8-10.8)
--- NOTE | 2017-01-30 08:27 | PN- Housestaff ---
See Addendum Subjective Follow-up For: Altered mentation Concern for aspiration/respirartory infection Subjective: I saw and examined the patient today morning He is doing better in terms of mentation, He didnt sleep throughout the night. Oxygen demand increased to 5L, significant wheezing without any cough/phlegm production. Sitter in place. No signs of infection in any other places. Review of Systems Constitutional: Reports: see HPI. Comments: ROS negative except the above. Objective Last 24 Hrs of Vital Signs/I&O Vital Signs Date Time Temp Pulse Resp B/P B/P Pulse O2 O2 Flow FiO2 Mean Ox Delivery Rate 01/30 0634 99.1 71 18 124/66 96 01/30 0000 95 Nasal 5.0L Cannula 01/29 2200 22 95 Nasal 5.0L Cannula 01/29 1600 86 Nasal 2.0L Cannula 01/29 1540 86 Nasal 3.0L Cannula 01/29 1436 98.2 77 20 120/70 98 01/29 1241 98.0 01/29 1008 Nasal 2.0L Cannula 01/29 0934 108 165/90 01/29 0918 92 Nasal 2.0L Cannula Intake & Output 01/30 1600 01/30 0800 01/30 0000 Intake Total 240 240 Output Total 350 350 Balance -110 -110 Intake, Oral 240 240 Output, Urine 350 350 Physical Exam General Appearance: Alert, Oriented X3, Cooperative Skin: No Rashes HEENT: Atraumatic, PERRLA, EOMI Neck: Supple Cardiovascular: Normal S1, Normal S2 Lungs: Normal Air Movement, significant wheezing throughout the lungs. on 5L oxygen Abdomen: Normal Bowel Sounds, Soft, No Tenderness Neurological: Strength at 5/5 X4 Ext, Normal Tone, Sensation Intact, Cranial Nerves 3-12 NL Extremities: No Clubbing, No Cyanosis, No Edema Current Medications: Current Medications Sig/Dora Start time Last Medication Dose Route Stop Time Status Admin Albuterol Sulfate 3 ML BID 01/29 1000 AC 01/30 INH 0813 Atorvastatin Calcium 80 MG 1700 01/29 1700 AC 01/29 PO 173 Donepezil HCl 5 MG AT BEDTIME 01/29 2200 AC 01/29 PO 205 Furosemide 20 MG ONCE ONE 01/29 1915 DC 01/29 IV 01/29 Hydrochlorothiazide 25 MG DAILY 01/29 1234 AC 01/29 PO 1739 Metoprolol Succinate 50 MG DAILY 01/29 1000 AC 01/29 PO 0934 Potassium Chloride 40 MEQ ONCE ONE 01/29 1630 DC 01/29 PO 01/29 1631 1739 Potassium Chloride 40 MEQ ONCE ONE 01/29 1245 CAN PO 01/29 1246 Potassium Chloride 10 MEQ ONCE ONE 01/29 1230 CAN IV 01/29 1231 Quetiapine Fumarate 50 MG AT BEDTIME 01/29 2200 AC 01/29 PO 2052 Rivaroxaban 20 MG 1700 01/29 1700 DC PO Rivaroxaban 20 MG 1700 01/29 1700 AC 01/29 PO 173 Sodium Chloride 1,000 ML Q13H 01/29 0200 DC 01/29 IV 0445 Trazodone HCl 50 MG AT BEDTIME 01/29 2200 AC 01/29 PO 2052 Last 24 Hrs of Lab/William Results Last 24 Hrs of Labs/Mics: Laboratory Tests 01/30/17 0658: Anion Gap 9, Estimated GFR > 60, BUN/Creatinine Ratio 32.9 H, CBC w Diff NO MAN DIFF REQ, RBC 3.76 L, MCV 98.8 H, MCH 33.4 H, RDW 13.4, MPV 8.7, Gran % 75.4 H, Lymphocytes % 16.7 L, Monocytes % 7.6, Eosinophils % 0, Basophils % 0.3, Absolute Granulocytes 6.1, Absolute Lymphocytes 1.4, Absolute Monocytes 0.6, Absolute Eosinophils 0, Absolute Basophils 0, PUBS MCHC 33.8 01/29/170: pH 7.35, pCO2 35, pO2 73 L, HCO3 19 L, ABG O2 Sat (Measured) 93.0 L, P-50 ( Temp Corrected) N, Carboxyhemoglobin 0.4 L, O2 Concentration % 5L, Temperature 98.2, O2 Delivery Method NC, Phlebotomy Draw Site RIGHT BRACHIAL Microbiology 01/29 1500 NASOPHARYN: Influenza Virus A & B Rapid Smear - COMP Assessment/Plan Assessment: Patient is a 89 YO M BIBA from [facility] with history of altered mental status. According to the ED document the staff from the facility told that patient was having temperature of 101.7 and was not able to take anything orally. He developed hypotension in the emergency department, and was given IV fluids. Vital signs at the time of admission -temperature 101.7, pulse 80, respiratory rate 16, blood pressure 122/60, SPO2 94% on room air Pertinent labs -Hb -13.2,Hct-39.1 CXR - no any acute cardiopulmonary involvement Altered mental status Patient with history of dementia; AAO 3 at the time of our interview. * head CT ruled out any pathology. * We do not have complete history. Most of the history is from ED records and the patient. call the family and facility tomorrow to get the complete information. * Patient passed bedside swallow evaluation, we will consider formal evaluation. * On examination, patient is having wheezes especially in the upper part of the chest * Altered mental status, can be due to fever * better today - reports today is tuesday - [place] to go [place] [facility]. Fever Patient presented with temperature of 101.7. He does not report any urinary or respiratory symptoms. UA and chest x-ray negative. Labs unremarkable. He has received IV ceftriaxone and IV azithromycin in the ED. * Most probably aspiration pneumonia in the setting of altered mentation. * Wheezing on top of it concerning for inflammatory response * A single dose of azithromycin & unasyn given. * Will order flu swab. * f/u all cultures * We will confirm it by formal swallow evaluation. hyponatremia Sodium 132 on admission; , * Intially gave IV normal saline, * will recheck levels in the morning- 139 * Resolved and stopped fluids Hypokalemia * Potassium 3.3 this morning * Repleted k * Recheck in the morning Alzheimer's dementia -depression * We will continue donepezil, Quetiapine, trazodone. Atrial fibrillation with controlled ventricular rate * We will continue tablet Xarelto 20 milligrams daily * We will watch for the bleeding Hypertension * hold quinapril for now, start quinapril if blood pressure comes up. * continue metoprolol, hctz Hyperlipidemia * We will continue atorvastatin Diet -patient passed bedside swallow evaluation DVT prophylaxis-ALP S/heparin CODE STATUS-FC Problem List: 1. Alzheimer's dementia 2. Fever 3. Hyponatremia Pain Ratin Pain Location: N/A Pain Goal: Pain 4 or less Pain Plan: TYLENOL PRN Tomorrow's Labs & Rationales: CBC TO MONITOR WHITE COUNT BEP TO MONITOR ELECTROLYTES
[2017-01-30 14:06] VITALS: BP 124/80
--- NOTE | 2017-01-30 14:15 | Event Note ---
Event Note Event Note: I was notified by the nurse that patient's temp was 100.3, satting 93% on 6L. After discussing with the resident, we decided to put patient NPO, without IVF ( as his lungs sounded crackly when fluids were given yesterday, lasix subsequently given), IV unasyn started, pt put NPO (except for meds), and swallow evaluation to be followed.
[2017-01-30 21:59] VITALS: BP 116/76
--- NOTE | 2017-01-31 07:05 | PN- Housestaff ---
Subjective Follow-up For: Aspiration pneumonia Review of Systems Constitutional: Reports: see HPI. Objective Last 24 Hrs of Vital Signs/I&O Vital Signs Date Time Temp Pulse Resp B/P B/P Pulse O2 O2 Flow FiO2 Mean Ox Delivery Rate 01/31 0000 95 Nasal 4.0L Cannula 01/30 2159 98.0 87 20 116/76 95 Nasal 4.0L Cannula 01/30 1800 96 Nasal 5.0L Cannula 01/30 1600 97 Nasal 6.0L Cannula 01/30 1411 93 Nasal 6.0L Cannula 01/30 1406 100.3 93 22 124/80 93 Nasal 6.0L Cannula 01/30 0837 71 128/70 01/30 0833 92 Nasal 5.0L Cannula 01/30 0800 92 Nasal 5.0L Cannula Intake & Output 01/31 0800 01/31 0000 01/30 1600 Intake Total 150 360 Output Total Balance 150 360 Intake, IV 10 Intake, Oral 150 350 Physical Exam General Appearance: Alert Skin: No Rashes, No Breakdown HEENT: Atraumatic, PERRLA Neck: Supple Cardiovascular: Normal S1, Normal S2 Lungs: Normal Air Movement, decreased breath sounds at bases Abdomen: Normal Bowel Sounds, Soft, No Tenderness Neurological: Normal Tone, Sensation Intact, Cranial Nerves 3-12 NL Extremities: No Clubbing, No Cyanosis, No Edema Current Medications: Current Medications Sig/Dora Start time Last Medication Dose Route Stop Time Status Admin Albuterol Sulfate 3 ML EVERY 4 HRS/AWAKE 01/30 2000 AC 01/30 INH 2200 Albuterol Sulfate 3 ML BID 01/29 1000 DC 01/30 INH 1415 Ampicillin Sodium/ 1,500 MG Q6H 01/30 220 AC 01/31 Sulbactam Sodium IV 0439 Sodium Chloride 100 ML Ampicillin Sodium/ 1,500 MG Q6 01/30 1412 DC 01/30 Sulbactam Sodium IV 1611 Sodium Chloride 100 ML Atorvastatin Calcium 80 MG 1700 01/29 1700 AC 01/30 PO 1619 Azithromycin 500 MG ONCE ONE 01/30 1400 CAN PO 01/30 1600 Donepezil HCl 5 MG AT BEDTIME 01/29 220 AC 01/30 PO 2150 Hydrochlorothiazide 25 MG DAILY 01/29 1234 AC 01/30 PO 0837 Metoprolol Succinate 50 MG DAILY 01/29 1000 AC 01/30 PO 0837 Potassium Chloride 40 MEQ ONCE ONE 01/30 1400 DC 01/30 PO 01/30 1401 1343 Potassium Chloride 40 MEQ ONCE ONE 01/30 0945 DC 01/30 PO 01/30 0946 1032 Prednisone 40 MG DAILY 01/30 1213 DC 01/30 PO 01/30 1214 1343 Quetiapine Fumarate 50 MG AT BEDTIME 01/29 2200 AC 01/30 PO 2150 Rivaroxaban 20 MG 1700 01/29 1700 AC 01/30 PO 1619 Trazodone HCl 50 MG AT BEDTIME 01/29 2200 AC 01/30 PO 2150 Last 24 Hrs of Lab/William Results Last 24 Hrs of Labs/Mics: Laboratory Tests 01/31/17 0622: Anion Gap 8, Estimated GFR > 60, BUN/Creatinine Ratio 34.3 H, CBC w Diff NO MAN DIFF REQ, RBC 3.61 L, MCV 99.2 H, MCH 33.6 H, RDW 13.5, MPV 8.7, Gran % 77.9 H, Lymphocytes % 14.6 L, Monocytes % 7.3, Eosinophils % 0, Basophils % 0.2, Absolute Granulocytes 8.1 H, Absolute Lymphocytes 1.5, Absolute Monocytes 0.8 H, Absolute Eosinophils 0, Absolute Basophils 0, PUBS MCHC 33.9 Assessment/Plan Assessment: Patient is a 89 YO M BIBA from [facility] with history of altered mental status. According to the ED document the staff from the facility told that patient was having temperature of 101.7 and was not able to take anything orally. He developed hypotension in the emergency department, and was given IV fluids. Vital signs at the time of admission -temperature 101.7, pulse 80, respiratory rate 16, blood pressure 122/60, SPO2 94% on room air Pertinent labs -Hb -13.2,Hct-39.1 CXR - no any acute cardiopulmonary involvement Altered mental status Patient with history of dementia; AAO 3 at the time of our interview. * head CT ruled out any pathology. * We do not have complete history. Most of the history is from ED records and the patient. call the family and facility tomorrow to get the complete information. * Patient passed bedside swallow evaluation, we will consider formal evaluation. * Altered mental status, can be due to fever * Sitter in place, still altered * Swallow evaluation passed for pureed and honey thick liquids. Fever Patient presented with temperature of 101.7. He does not report any urinary or respiratory symptoms. UA and chest x-ray negative. Labs unremarkable. He has received IV ceftriaxone and IV azithromycin in the ED. * Most probably aspiration pneumonia in the setting of altered mentation. * Wheezing on top of it concerning for inflammatory response * A single dose of azithromycin & unasyn given. * On unasyn for suspected aspiration pneumonia * Passed swallow evaluation as above. hyponatremia - resolved Hypokalemia * Potassium 3.3 this morning * Repleted k * Recheck in the morning Alzheimer's dementia -depression * We will continue donepezil, Quetiapine, trazodone. Atrial fibrillation with controlled ventricular rate * We will continue tablet Xarelto 20 milligrams daily * We will watch for the bleeding Hypertension * hold quinapril for now, start quinapril if blood pressure comes up. * continue metoprolol, hctz Hyperlipidemia * We will continue atorvastatin Diet- pureed and honey thick DVT prophylaxis-ALP S/heparin CODE STATUS-FC Problem List: 1. Hyponatremia 2. Fever 3. Hypertension Pain Ratin Pain Location: n/a Pain Goal: Pain 4 or less Pain Plan: tylenol prn Tomorrow's Labs & Rationales: cbc to monitor white count bep to monitor electrolytes
[2017-01-31 07:10] VITALS: BP 110/68
[2017-01-31 08:52] LABS: ABSOLUTE BASOPHIL COUNT 0 /CUMM (0.0-0.2); ABSOLUTE EOSINOPHIL COUNT 0 /CUMM (0.0-0.7); ABSOLUTE GRANULOCYTE CT 8.1 /CUMM (1.4-6.5); ABSOLUTE LYMPH COUNT 1.5 /CUMM (1.2-3.4); ABSOLUTE MONOCYTE COUNT 0.8 /CUMM (0.10-0.60); BASOPHIL % 0.2 % (0.0-2.0); EOSINOPHIL % 0 % (0-5); GRANULOCYTE % 77.9 % (42.2-75.2); HEMATOCRIT 35.8 % (42-52); MEAN CORPUSCULAR HGB 33.6 PG (27.0-31.0); MEAN CORPUSCULAR HGB CONC 33.9 G/DL (33.0-37.0); MEAN CORPUSCULAR VOLUME 99.2 FL (80.0-94.0); MEAN PLATELET VOLUME 8.7 FL (7.4-10.4); PLATELET COUNT 144 /CUMM (130-400); RBC DISTRIBUTION WIDTH 13.5 % (11.5-14.5); RED BLOOD CELL CT 3.61 /CUMM (4.70-6.10); WHITE BLOOD CELL COUNT 10.4 /CUMM (4.8-10.8)
[2017-01-31 14:57] VITALS: BP 108/70
--- NOTE | 2017-01-31 16:03 | RADIOLOGY REPORT ---
EXAMINATION: XR PORTABLE CHEST CLINICAL INFORMATION: Increasing oxygen demand. Pneumonia versus CHF. COMPARISON: Chest done on 01/29/2017. TECHNIQUE: Portable frontal view of the chest was obtained. FINDINGS: There is a focal airspace consolidation identified involving the right upper lobe of the lung limited inferiorly by the fissure, appear worsened or new since the prior study dated 01/29/2017. The remainder of the lung rooney shows mild diffuse nonspecific interstitial prominence without any superimposed focal alveolar disease. The heart size is within normal limits. There is no pleural effusion present. The visualized upper abdomen is unremarkable. IMPRESSION: Abnormal alveolar airspace disease at right upper lobe of the lung, appear more pronounced or new since prior study dated 01/29/2017, most consistent with pneumonia. Follow-up imaging to document complete resolution is recommended.
--- NOTE | 2017-01-31 20:54 | PN- Att Addend ---
Attending Addendum Attending Brief Note Events over the weekend noted. Patient over the weekend developed a fever. The first chest x-ray did not show an infiltrate the second one shows the beginning of an infiltrate consistent with pneumonia will check make sure he is not aspirating get a swallowing evaluation and monitor temperature monitor white count, patient was started on IV antibiotic therapy. Patient still a little confused had no I was his doctor. 24 TOTALS 01/31 0000 01/30 0000 Intake Total 750 705 Output Total 350 752 Balance 400 -47 Intake, IV 10 225 Intake, Oral 740 480 Number 0 Bowel Movements Output, Stool 2 Output, Urine 350 750 Patient 153 lb Weight Weight Reported by Patient Measurement Method Current Medications Sig/Dora Start time Last Medication Dose Route Stop Time Status Admin Albuterol Sulfate 3 ML EVERY 4 HRS/AWAKE 01/31 2000 AC 01/31 INH 2050 Ampicillin Sodium/ 1,500 MG Q6H 01/30 2200 AC 01/31 Sulbactam Sodium IV 1644 Sodium Chloride 100 ML Atorvastatin Calcium 80 MG 0 01/29 170 AC 01/31 PO 164 Donepezil HCl 5 MG AT BEDTIME 01/29 2200 AC 01/30 PO 2150 Haloperidol 0.5 MG ONCE ONE 01/31 1830 DC 01/31 IM 01/31 183 1824 Hydrochlorothiazide 25 MG DAILY 01/29 1234 AC 01/31 PO 0905 Metoprolol Succinate 50 MG DAILY 01/29 1000 AC 01/31 PO 0905 Patient Medication 1 ED .STK-MED ONE 01/31 1248 DC Teaching ED 01/31 1249 Potassium Chloride 40 MEQ ONCE ONE 01/31 1300 DC 01/31 PO 01/31 1301 1228 Potassium Chloride 40 MEQ ONCE ONE 01/31 0900 DC 01/31 PO 01/31 0901 0905 Quetiapine Fumarate 50 MG AT BEDTIME 01/29 220 AC 01/31 PO 1811 Rivaroxaban 20 MG 1700 01/29 1700 AC 01/31 PO 1644 Trazodone HCl 50 MG AT BEDTIME 01/29 2200 AC 01/31 PO 1811 Laboratory Tests 01/31/17 06: Anion Gap 8, Estimated GFR > 60, BUN/Creatinine Ratio 34.3 H, CBC w Diff NO MAN DIFF REQ, RBC 3.61 L, MCV 99.2 H, MCH 33.6 H, RDW 13.5, MPV 8.7, Gran % 77.9 H, Lymphocytes % 14.6 L, Monocytes % 7.3, Eosinophils % 0, Basophils % 0.2, Absolute Granulocytes 8.1 H, Absolute Lymphocytes 1.5, Absolute Monocytes 0.8 H, Absolute Eosinophils 0, Absolute Basophils 0, PUBS MCHC 33.9 01/30/17 0658: Anion Gap 9, Estimated GFR > 60, BUN/Creatinine Ratio 32.9 H, CBC w Diff NO MAN DIFF REQ, RBC 3.76 L, MCV 98.8 H, MCH 33.4 H, RDW 13.4, MPV 8.7, Gran % 75.4 H, Lymphocytes % 16.7 L, Monocytes % 7.6, Eosinophils % 0, Basophils % 0.3, Absolute Granulocytes 6.1, Absolute Lymphocytes 1.4, Absolute Monocytes 0.6, Absolute Eosinophils 0, Absolute Basophils 0, PUBS MCHC 33.8 01/29/17 1700: pH 7.35, pCO2 35, pO2 73 L, HCO3 19 L, ABG O2 Sat (Measured) 93.0 L, P-50 ( Temp Corrected) N, Carboxyhemoglobin 0.4 L, O2 Concentration % 5L, Temperature 98.2, O2 Delivery Method NC, Phlebotomy Draw Site RIGHT BRACHIAL 01/29/17 0645: Anion Gap 10, Estimated GFR > 60, BUN/Creatinine Ratio 25.7 H, CBC w Diff NO MAN DIFF REQ, RBC 3.88 L, MCV 98.3 H, MCH 33.5 H, RDW 13.9, MPV 8.4, Gran % 77.2 H, Lymphocytes % 15.2 L, Monocytes % 7.2, Eosinophils % 0.1, Basophils % 0.3, Absolute Granulocytes 5.3, Absolute Lymphocytes 1.1 L, Absolute Monocytes 0.5, Absolute Eosinophils 0, Absolute Basophils 0, PUBS MCHC 34.1 01/29/17 0059: Lactic Acid 0.8 01/28/17 2115: Anion Gap 7, Estimated GFR > 60, BUN/Creatinine Ratio 25.0, Glucose 109 H, Lactic Acid 1.2, Calcium 8.4, Total Bilirubin 0.8, AST 24, ALT 40, Alkaline Phosphatase 86, Troponin I 0.01, Total Protein 6.1 L, Albumin 3.5, Globulin 2.6 , Albumin/Globulin Ratio 1.3, Vitamin B12 462, Folate 14.3, TSH 0.561, Free T4 1.08, CBC w Diff NO MAN DIFF REQ, RBC 3.96 L, MCV 98.6 H, MCH 33.3 H, RDW 14.0, MPV 8.1, Gran % 78.1 H, Lymphocytes % 14.6 L, Monocytes % 6.7, Eosinophils % 0.1, Basophils % 0.5, Absolute Granulocytes 5.4, Absolute Lymphocytes 1.0 L, Absolute Monocytes 0.5, Absolute Eosinophils 0, Absolute Basophils 0, PUBS MCHC 33.8 Microbiology 01/30 151 BLOOD: Blood Culture - RES 01/30 145 BLOOD: Blood Culture - RES 01/30 144 LOWER RESP: Respiratory Culture - RES 01/30 144 LOWER RESP: Gram Stain - RES 01/29 1500 NASOPHARYN: Influenza Virus A & B Rapid Smear - COMP 01/28 2125 BLOOD: Blood Culture - RES 01/28 2115 BLOOD: Blood Culture - RES Microbiology 01/30 151 BLOOD: Blood Culture - RES 01/30 1453 BLOOD: Blood Culture - RES 01/30 1445 LOWER RESP: Respiratory Culture - RES 01/30 144 LOWER RESP: Gram Stain - RES 01/29 1500 NASOPHARYN: Influenza Virus A & B Rapid Smear - COMP 01/28 2125 BLOOD: Blood Culture - RES 01/28 2115 BLOOD: Blood Culture - RES Also replace potassium
[2017-01-31 22:31] VITALS: BP 108/70
--- NOTE | 2017-02-01 07:10 | PN- Housestaff ---
Subjective Follow-up For: Altered mental status right upper lobe peum[place] Subjective: I saw and examined the patient today morning He is very altered, unable to sleep. Received several doses of haldol overnight. Today morning he is alert and significantly altered. Sitter in place Review of Systems Constitutional: Reports: see HPI. Comments: ROS negative except the above. Objective Last 24 Hrs of Vital Signs/I&O Vital Signs Date Time Temp Pulse Resp B/P B/P Pulse O2 O2 Flow FiO2 Mean Ox Delivery Rate 02/01 0000 Nasal 4.0L Cannula 01/31 2231 98.6 109 20 108/70 93 Nasal 4.0L Cannula 01/31 1645 96 Nasal 4.0L Cannula 01/31 1600 Nasal 4.0L Cannula 01/31 1457 98.7 114 20 108/70 90 Nasal 4.0L Cannula 01/31 0905 94 110/68 01/31 0806 96 Room Air Room Air 01/31 0800 Nasal 4.0L Cannula 01/31 0710 97.9 94 18 110/68 97 Nasal 4.5L Cannula Intake & Output 02/01 0800 02/01 0000 01/31 1600 Intake Total 220 220 140 Output Total 501 Balance 220 -281 140 Intake, IV 100 100 110 Intake, Oral 120 120 30 Output, Stool 1 Output, Urine 500 Physical Exam General Appearance: Alert, Moderate Distress Skin: No Rashes, No Breakdown HEENT: Atraumatic Neck: Supple Cardiovascular: Normal S1, Normal S2 Lungs: Normal Air Movement, decreased breath sounds, mild crackles at bases. Abdomen: Normal Bowel Sounds, Soft, No Tenderness Neurological: Normal Speech, Sensation Intact Extremities: No Clubbing, No Cyanosis Current Medications: Current Medications Sig/Dora Start time Last Medication Dose Route Stop Time Status Admin Albuterol Sulfate 3 ML EVERY 4 HRS/AWAKE 01/31 2000 AC 01/31 INH 2049 Ampicillin Sodium/ 1,500 MG Q6H 01/30 2200 AC 02/01 Sulbactam Sodium IV 0444 Sodium Chloride 100 ML Atorvastatin Calcium 80 MG 1700 01/29 170 AC 01/31 PO 1644 Donepezil HCl 5 MG AT BEDTIME 01/29 2200 AC 01/31 PO 2205 Haloperidol 1 MG ONCE ONE 02/01 0145 DC IM 02/01 0146 Haloperidol 0.5 MG ONCE ONE 01/31 1830 DC 01/31 IM 01/31 1831 1824 Hydrochlorothiazide 25 MG DAILY 01/29 1234 AC 01/31 PO 0905 Metoprolol Succinate 50 MG DAILY 01/29 1000 AC 01/31 PO 0905 Patient Medication 1 ED .STK-MED ONE 01/31 1248 DC Teaching ED 01/31 1249 Potassium Chloride 40 MEQ ONCE ONE 01/31 1300 DC 01/31 PO 01/31 1301 1228 Potassium Chloride 40 MEQ ONCE ONE 01/31 0900 DC 01/31 PO 01/31 0901 0905 Quetiapine Fumarate 50 MG AT BEDTIME 01/29 2200 AC 01/31 PO 1811 Rivaroxaban 20 MG 1700 01/29 1700 AC 01/31 PO 1644 Trazodone HCl 50 MG AT BEDTIME 01/29 220 AC 01/31 PO 181 Last 24 Hrs of Lab/William Results Last 24 Hrs of Labs/Mics: Laboratory Tests 02/01/17 0723: Anion Gap 11, Estimated GFR > 60, BUN/Creatinine Ratio 33.8 H, CBC w Diff NO MAN DIFF REQ, RBC 3.94 L, MCV 97.9 H, MCH 33.1 H, RDW 13.8, MPV 8.8, Gran % 76.6 H, Lymphocytes % 15.5 L, Monocytes % 7.7, Eosinophils % 0, Basophils % 0.2, Absolute Granulocytes 7.7 H, Absolute Lymphocytes 1.6, Absolute Monocytes 0.8 H, Absolute Eosinophils 0, Absolute Basophils 0, PUBS MCHC 33.8 Assessment/Plan Assessment: Patient is a 89 YO M BIBA from [facility] with history of altered mental status. According to the ED document the staff from the facility told that patient was having temperature of 101.7 and was not able to take anything orally. He developed hypotension in the emergency department, and was given IV fluids. Altered mental status Patient with history of dementia; AAO 3 at the time of our interview. * head CT ruled out any pathology. * We do not have complete history. Most of the history is from ED records and the patient. call the family and facility tomorrow to get the complete information. * Sitter in place, still altered * Swallow evaluation passed for pureed and honey thick liquids. * Psych consulted - appreciate their recommendations. Right upper lobe pneumonia Patient presented with temperature of 101.7. He does not report any urinary or respiratory symptoms. UA and chest x-ray negative. Labs unremarkable. He has received IV ceftriaxone and IV azithromycin in the ED. * Most probably aspiration pneumonia in the setting of altered mentation. * Wheezing on top of it concerning for inflammatory response * A single dose of azithromycin & unasyn given. * On unasyn for suspected aspiration pneumonia * Sputum culture grew gram negative rods, yeast and mixed ruth -- ?aspiration * High oxygen requirement despite antibiotics, no improvement in mentation - palced a ID consult. * Passed swallow evaluation as above. hyponatremia - resolved Hypokalemia * Potassium 3.3 this morning * Repleted k * Recheck in the morning Alzheimer's dementia -depression * We will continue donepezil, Quetiapine, trazodone. Atrial fibrillation with controlled ventricular rate * We will continue tablet Xarelto 20 milligrams daily * We will watch for the bleeding Hypertension * Restart quinupril as blood pressure is increasing from tomorrow. * continue metoprolol, hctz Hyperlipidemia * We will continue atorvastatin Diet- pureed and honey thick DVT prophylaxis-ALP S/heparin CODE STATUS-FC Problem List: 1. Fever 2. Pneumonia 3. Hypotension Pain Ratin Pain Location: n/a Pain Goal: Pain 4 or less Pain Plan: tylenol prn Tomorrow's Labs & Rationales: CBC to monitor white count BEP to monitor electrolytes BEP to monitor electrolytes
[2017-02-01 07:19] VITALS: BP 140/88
--- NOTE | 2017-02-01 08:58 | Discharge Summary ---
Visit Information Visit Dates Admission Date: 01/29/17 Discharge Date: 02/07/17 Hospital Course Course Attending Physician: RACH CHAVEZ MD Primary Care Physician: RACH CHAVEZ MD Consulting Request: Consulting Specialty: Infectious Disease Consulting Physician: Dr. Gillis Reason for Consult: Aspiration pneumonia Hospital Course: Patient is a 89 YO M BIBA from [facility] with history of altered mental status. According to the ED document the staff from the facility told that patient was having temperature of 101.7 and was not able to take anything orally. He developed hypotension in the emergency department, and was given IV fluids with subsequent improvement. Iniatial head CT was negative for any acute insult. The patient received antibiotics in the ER but initially followed of antibiotics in the patel. He had an increase in Oxygen demand and low grade fever for which was started on IV unasyn. Patient had a swallow evaluation and cosistency changed to thickened liquids. Below is a list of medical conditions addressed during the course of the admission Altered mental status Patient with history of dementia residence of a [facility] from a dementia unit. His mental status flactuated on and off requiring a one to one sitter due to agitation and unsafe behaviors. The patient passed a bed side swallow evaluation on the day of admission. Given his contined altered mental status he was reviewed by psychiatric team and started on seroquel 25mg 3 times a day per required need for agitation. Health Care Acquired Pseudomonas penumonia Patient presented with temperature of 101.7. He did not report any urinary or respiratory symptoms. UA and chest x-ray negative. Labs unremarkable. He received IV ceftriaxone and IV azithromycin in the ED. Repeated XRY after a spike of temperature showed new consolidation features. Patient was reviewed by speech therapy for a formal swallow evaluation and started on IV unasyn. He was reviewed by ID and antibiotics changed to ceftazidine. The respiratory culture grew Pseudomonas. Antibiotics switched to oral ciprofloxacin 500mg BID. Antibiotics complete by 02/11/17 Hyponatremia Patient presented with hyponatremia. He received IVF with improvement and subsequent resolution of the hyponatremia. Hypokalemia Paient presented with hypokalemia. He received supplementation with subsequent resolution of the situation. Alzheimer's dementia - This is a resiodence of a senior care facility for patient with memory problems. We continued her mental health medication donepezil, Quetiapine and trazodone. Trazodone dose reduced to 25mg at bedtime. Atrial fibrillation with controlled ventricular rate Patient has history of atrial fibrillation. We continued Xarelto 20 milligrams daily for the duration of the admission and will discharge the patient home to continue with the same medication. Hypertension Please continue quinupril, metoprolol, hctz. Complications: NONE Allergies: Coded Allergies: No Known Allergies (12/11/16) Pertinent Lab Results: Laboratory Tests 02/01 01/31 0723 0622 Chemistry Sodium (137 - 145 mmol/L) 141 139 Potassium (3.5 - 5.1 mmol/L) 3.7 3.3 L Chloride (98 - 107 mmol/L) 99 100 Carbon Dioxide (22 - 30 mmol/L) 31 H 32 H Anion Gap (5 - 16) 11 8 BUN (9 - 20 mg/dL) 27 H 24 H Creatinine (0.7 - 1.2 mg/dL) 0.8 0.7 Estimated GFR (>60 ml/min) > 60 > 60 BUN/Creatinine Ratio (7 - 25 %) 33.8 H 34.3 H Hematology CBC w Diff NO MAN DIFF REQ NO MAN DIFF REQ WBC (4.8 - 10.8 /CUMM) 10.1 10.4 RBC (4.70 - 6.10 /CUMM) 3.94 L 3.61 L Hgb (14.0 - 18.0 G/DL) 13.0 L 12.1 L Hct (42 - 52 %) 38.5 L 35.8 L MCV (80.0 - 94.0 FL) 97.9 H 99.2 H MCH (27.0 - 31.0 PG) 33.1 H 33.6 H RDW (11.5 - 14.5 %) 13.8 13.5 Plt Count (130 - 400 /CUMM) 180 144 MPV (7.4 - 10.4 FL) 8.8 8.7 Gran % (42.2 - 75.2 %) 76.6 H 77.9 H Lymphocytes % (20.5 - 51.1 %) 15.5 L 14.6 L Monocytes % (1.7 - 9.3 %) 7.7 7.3 Eosinophils % (0 - 5 %) 0 0 Basophils % (0.0 - 2.0 %) 0.2 0.2 Absolute Granulocytes (1.4 - 6.5 /CUMM) 7.7 H 8.1 H Absolute Lymphocytes (1.2 - 3.4 /CUMM) 1.6 1.5 Absolute Monocytes (0.10 - 0.60 /CUMM) 0.8 H 0.8 H Absolute Eosinophils (0.0 - 0.7 /CUMM) 0 0 Absolute Basophils (0.0 - 0.2 /CUMM) 0 0 PUBS MCHC (33.0 - 37.0 G/DL) 33.8 33.9 Disposition Summary Disposition Principal Diagnosis: Altered mental status Hyponatremia Hypokalemia Aspiration pneumonia Additional Diagnosis: Hypertension Atrial fibrillation Discharge Disposition: home health services Discharge Instructions General Discharge Information Code Status: Full Code Patient's Diet: Pureed and thin liquid diet Patient's Activity: As tolerated Follow-Up Instructions/Appts: Please call and make a follow up with your primary care physician within one week after discharge Medications at Discharge Discharge Medications: Continue taking these medications: Metoprolol Succinate (Metoprolol Succinate) 50 MG TAB.ER.24H 1 Tablet ORAL DAILY Qty = 30 Comments: Last Taken:02/07/17 Time:8AM Simvastatin (Simvastatin*) 80 MG TABLET 1 Tablet ORAL AT BEDTIME Qty = 30 Comments: Last Taken:02/06/17 Time:5PM Quinapril HCl (Quinapril HCl) 20 MG TABLET 1 Tablet ORAL DAILY Qty = 90 Comments: NOT GIVEN Hydrochlorothiazide (Hydrochlorothiazide) 25 MG TABLET 1 Tablet ORAL DAILY Qty = 30 Comments: Last Taken:02/07/17 Time:8AM Rivaroxaban (Xarelto) 20 MG TABLET 1 Tablet ORAL DAILY Qty = 30 Instructions: with food Comments: Last Taken:02/07/17 Time:8AM Donepezil HCl (Aricept) 5 MG TABLET 1 Tablet ORAL AT BEDTIME Comments: Last Taken:02/06/17 Time:10PM Trazodone HCl (Trazodone HCl) 50 MG TABLET 1 Tablet ORAL AT BEDTIME Comments: Last Taken:02/06/17 Time:10PM 25MG GIVEN Pantoprazole Sodium (Pantoprazole Sodium) 40 MG TABLET.DR 1 Tablet ORAL DAILY Comments: NOT GIVEN Quetiapine Fumarate (Seroquel) 50 MG TABLET 1 Tablet ORAL AT BEDTIME Comments: Last Taken:02/06/17 Time:10PM Start taking the following new medications: Ciprofloxacin HCl (Cipro) 500 MG TABLET 1 Tablet ORAL TWICE DAILY Qty = 8 No Refills Comments: Last Taken:02/07/17 Time:9AM Copies To: JOSE E RIVERA APRN; RUTH CHE,AV Miller Attending MD Review Statement Documenting Attending: KATHY CHE,RACH
[2017-02-01 09:04] LABS: ABSOLUTE BASOPHIL COUNT 0 /CUMM (0.0-0.2); ABSOLUTE EOSINOPHIL COUNT 0 /CUMM (0.0-0.7); ABSOLUTE GRANULOCYTE CT 7.7 /CUMM (1.4-6.5); ABSOLUTE LYMPH COUNT 1.6 /CUMM (1.2-3.4); ABSOLUTE MONOCYTE COUNT 0.8 /CUMM (0.10-0.60); BASOPHIL % 0.2 % (0.0-2.0); EOSINOPHIL % 0 % (0-5); GRANULOCYTE % 76.6 % (42.2-75.2); HEMATOCRIT 38.5 % (42-52); MEAN CORPUSCULAR HGB 33.1 PG (27.0-31.0); MEAN CORPUSCULAR HGB CONC 33.8 G/DL (33.0-37.0); MEAN CORPUSCULAR VOLUME 97.9 FL (80.0-94.0); MEAN PLATELET VOLUME 8.8 FL (7.4-10.4); PLATELET COUNT 180 /CUMM (130-400); RBC DISTRIBUTION WIDTH 13.8 % (11.5-14.5); RED BLOOD CELL CT 3.94 /CUMM (4.70-6.10); WHITE BLOOD CELL COUNT 10.1 /CUMM (4.8-10.8)
--- NOTE | 2017-02-01 10:21 | PN- Att Addend ---
Attending Addendum Attending Brief Note Patient in bed still very confused maybe more than yesterday has a sitter at the bedside patient is a febrile no major changes on physical continue antibiotic therapy total respiratory care follow-up labs PT reevaluation patient pass the swallowing evaluation but still on the special diet. Intake & Output 02/01 1600 02/01 0800 02/01 0000 01/31 1600 01/31 0800 01/31 0000 Intake Total 220 220 140 150 150 Output Total 501 Balance 220 -281 140 150 150 Intake, IV 100 100 110 150 Intake, Oral 120 120 30 0 150 Number 0 Bowel Movements Output, Stool 1 Output, Urine 500 Current Medications Sig/Dora Start time Last Medication Dose Route Stop Time Status Admin Albuterol Sulfate 3 ML EVERY 4 HRS/AWAKE 01/31 2000 AC 02/01 INH 0844 Ampicillin Sodium/ 1,500 MG Q6H 01/30 2200 AC 02/01 Sulbactam Sodium IV 0905 Sodium Chloride 100 ML Atorvastatin Calcium 80 MG 01/29 170 AC 01/31 PO 1644 Donepezil HCl 5 MG AT BEDTIME 01/29 2200 AC 01/31 PO 2205 Haloperidol 1 MG ONCE ONE 02/01 0145 DC IM 02/01 0146 Haloperidol 0.5 MG ONCE ONE 01/31 1830 DC 01/31 IM 01/31 1831 1824 Hydrochlorothiazide 25 MG DAILY 01/29 1234 AC 02/01 PO 0856 Metoprolol Succinate 50 MG DAILY 01/29 1000 AC 02/01 PO 0856 Patient Medication 1 ED .STK-MED ONE 01/31 1248 DC Teaching ED 01/31 1249 Potassium Chloride 40 MEQ ONCE ONE 01/31 1300 DC 01/31 PO 01/31 1301 1228 Quetiapine Fumarate 50 MG AT BEDTIME 01/29 2200 AC 01/31 PO 1811 Rivaroxaban 20 MG 1700 01/29 170 AC 01/31 PO 1644 Trazodone HCl 50 MG AT BEDTIME 01/29 2200 01/31 PO 1811 Laboratory Tests 02/01/17 0723: Anion Gap 11, Estimated GFR > 60, BUN/Creatinine Ratio 33.8 H, CBC w Diff NO MAN DIFF REQ, RBC 3.94 L, MCV 97.9 H, MCH 33.1 H, RDW 13.8, MPV 8.8, Gran % 76.6 H, Lymphocytes % 15.5 L, Monocytes % 7.7, Eosinophils % 0, Basophils % 0.2, Absolute Granulocytes 7.7 H, Absolute Lymphocytes 1.6, Absolute Monocytes 0.8 H, Absolute Eosinophils 0, Absolute Basophils 0, PUBS MCHC 33.8 01/31/17 0622: Anion Gap 8, Estimated GFR > 60, BUN/Creatinine Ratio 34.3 H, CBC w Diff NO MAN DIFF REQ, RBC 3.61 L, MCV 99.2 H, MCH 33.6 H, RDW 13.5, MPV 8.7, Gran % 77.9 H, Lymphocytes % 14.6 L, Monocytes % 7.3, Eosinophils % 0, Basophils % 0.2, Absolute Granulocytes 8.1 H, Absolute Lymphocytes 1.5, Absolute Monocytes 0.8 H, Absolute Eosinophils 0, Absolute Basophils 0, PUBS MCHC 33.9 Potassium improved.
[2017-02-01 14:25] VITALS: BP 110/63
--- NOTE | 2017-02-01 16:28 | Cons- Psychiatry ---
Psychiatric Consult Date of Consult: 02/01/17 Reason for Consult: "altered mental staus, confusion, history of dementia" Ordered by Dr. Ansari Attending Sebastian History of Present Illness: Identifying Info: 89-year-old conserved single male with a known history of Alzheimer's dementia presents to [facility] emergency department on 01/28/2017 with chief complaint of altered mental status. Admitted to medicine in subsequently diagnosed with PNA and multiple electrolyte abnormalities. He is resident of a locked memory care patel at [facility]. CC: "There are no more neighborhoods" HPI: Per documentation, patient apparently developed a fever at [facility] so they had him transported to the emergency department by ambulance. He was initially alert and oriented with some cognitive deficits noted. 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 He then attempted to get out of bed and remove his Juan José coat, would not listen to redirection. he was given haloperidol 0.5 mg IM to poor effect and 1 mg IM to good effect. On 12/11/16 pt was brought to the emergency department from home by family who reported the patient had been hallucinating for 1 month. He had been seeing people in his home and trying to get into his home that were not there. At that point he had been living independently. He was disorganized on evaluation and PEC'd to [facility] psych unit at [facility]. Per nursing report patient has been pleasantly confused. He has had a sitter in place due to concerns about the patient trying to get up and fall risk but has been easily redirectable. Per house staff report the patient has displayed waxing and waning mentation and she is altered from baseline. He has not been sleeping, has not been ambulating , and has been consuming approximately 50% of meals. Case management obtained collateral information from his nurse at memory care unit. She states that the patient is severely confused at baseline. He is typical ambulatory on unit, and is pleasant and cooperative. PMH: Please see the H&P for a complete listing hypertension, hyperlipidemia, history of [place] (2009), atrial fibrillation on Xarelto , GERD, presbycusis Past Psych History: -Outpatient none -Inpatient Currently resides on locked unit at [facility] Had stay at [facility] Nora unit in 12/2016 Family Psych History: Unable to obtain Substance History Former smoker Occasional EtOH Family Substance History: Unable to obtain Social: Patient has one living brother. He served in WWII. He has a court-appointed conservator Jas Archibald ([phone]). 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 Abuse/Trauma: World War II , unknown if he was exposed to combat. Current Home Psychotropic Medications: Per med claim history: Seroquel 50 mg daily at bedtime Trazodone 50 mg daily at bedtime Donepezil 5mg daily Current Hospital Psychotropic Medications: Med Donepezil HCl 5 MG PO AT BEDTIME 01/29/172199 Quetiapine Fumarate 50 MG PO AT BEDTIME 01/29/172199 Trazodone HCl 50 MG PO AT BEDTIME 01/29/172199 Allergies: Coded Allergies: No Known Allergies (12/11/16) Current Medications: Current Medications Sig/Dora Start time Last Medication Dose Route Stop Time Status Admin Albuterol Sulfate 3 ML EVERY 4 HRS/AWAKE 01/30 2000 AC 02/01 INH 1550 Ampicillin Sodium/ 1,500 MG Q6H 01/30 2200 AC 02/01 Sulbactam Sodium IV 1616 Sodium Chloride 100 ML Atorvastatin Calcium 80 MG 1700 01/29 1700 AC 02/01 PO 1616 Donepezil HCl 5 MG AT BEDTIME 01/29 2200 AC 01/31 PO 2205 Haloperidol 1 MG ONCE ONE 02/01 0145 DC IM 02/01 0146 Haloperidol 0.5 MG ONCE ONE 01/31 1830 DC 01/31 IM 01/31 1831 1824 Hydrochlorothiazide 25 MG DAILY 01/29 1234 AC 02/01 PO 0856 Metoprolol Succinate 50 MG DAILY 01/29 1000 AC 02/01 PO 0856 Quetiapine Fumarate 50 MG AT BEDTIME 01/29 2200 AC 01/31 PO 1811 Rivaroxaban 20 MG 1700 01/29 1700 AC 02/01 PO 1616 Trazodone HCl 50 MG AT BEDTIME 01/29 2200 AC 01/31 PO 1811 Past History Past Medical History Neurological: Alzheimer's disease, dementia EENT: NONE Cardiovascular: AFIB, hypertension, hyperlipidemia, [place] ?2010 Respiratory: NONE Gastrointestinal: NONE Hepatic: NONE Renal: NONE Musculoskeletal: NONE Psychiatric: NONE Endocrine: NONE Blood Disorders: NONE Cancer(s): NONE Past Surgical History Surgical History: unobtainable Psychosocial History 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 Lying in bed. Patient is unable to respond to assessment questions in a meaningful way but appears to attempt to cooperate. Orientation: Patient is able to state his first name but not last name or date of , not oriented to place time or situation Sensorium: Awake and alert Eye contact: Appropriate Affect: Full range Mood: Euthymic Depression: Unable to assess Anxiety: Unable to assess Thought Content: - Unable to assess Thought Process: Disorganized, tangential Associations: Loose Speech: Rambling, dysarthic Judgment: Poor Insight: Poor Cognition: Memory: Profound deficits in short-term and long-term memory at present Attention/Concentration: Severely impaired Fund of Knowledge: Unable to assess Abstractions: Unable to assess MMSE: Unable to complete Brief ROS Gait: Did not observe Sleep: Impaired Appetite: Consuming 50% of meals Energy: Adequate IADLs/ADLs: With assistance Lab Results: Laboratory Tests 02/01/17 0723: Anion Gap 11, Estimated GFR > 60, BUN/Creatinine Ratio 33.8 H, CBC w Diff NO MAN DIFF REQ, RBC 3.94 L, MCV 97.9 H, MCH 33.1 H, RDW 13.8, MPV 8.8, Gran % 76.6 H, Lymphocytes % 15.5 L, Monocytes % 7.7, Eosinophils % 0, Basophils % 0.2, Absolute Granulocytes 7.7 H, Absolute Lymphocytes 1.6, Absolute Monocytes 0.8 H, Absolute Eosinophils 0, Absolute Basophils 0, PUBS MCHC 33.8 01/31/17 0622: Anion Gap 8, Estimated GFR > 60, BUN/Creatinine Ratio 34.3 H, CBC w Diff NO MAN DIFF REQ, RBC 3.61 L, MCV 99.2 H, MCH 33.6 H, RDW 13.5, MPV 8.7, Gran % 77.9 H, Lymphocytes % 14.6 L, Monocytes % 7.3, Eosinophils % 0, Basophils % 0.2, Absolute Granulocytes 8.1 H, Absolute Lymphocytes 1.5, Absolute Monocytes 0.8 H, Absolute Eosinophils 0, Absolute Basophils 0, PUBS MCHC 33.9 01/30/17 0658: Anion Gap 9, Estimated GFR > 60, BUN/Creatinine Ratio 32.9 H, CBC w Diff NO MAN DIFF REQ, RBC 3.76 L, MCV 98.8 H, MCH 33.4 H, RDW 13.4, MPV 8.7, Gran % 75.4 H, Lymphocytes % 16.7 L, Monocytes % 7.6, Eosinophils % 0, Basophils % 0.3, Absolute Granulocytes 6.1, Absolute Lymphocytes 1.4, Absolute Monocytes 0.6, Absolute Eosinophils 0, Absolute Basophils 0, PUBS MCHC 33.8 01/29/17 1700: pH 7.35, pCO2 35, pO2 73 L, HCO3 19 L, ABG O2 Sat (Measured) 93.0 L, P-50 ( Temp Corrected) N, Carboxyhemoglobin 0.4 L, O2 Concentration % 5L, Temperature 98.2, O2 Delivery Method NC, Phlebotomy Draw Site RIGHT BRACHIAL Microbiology 01/30 1513 BLOOD: Blood Culture - RES 01/30 1453 BLOOD: Blood Culture - RES 01/30 1445 LOWER RESP: Respiratory Culture - RES GRAM NEGATIVE RODS YEAST 01/30 1445 LOWER RESP: Gram Stain - RES Diffential Diagnosis: Delirium due to multiple etiologies, acute, mixed level of activity By history major neurocognitive disorder due to Alzheimer's disease Impression: 89-year-old single male presents with altered mental status from locked unit at [facility]. Of note until December of this year this patient had been living independently prior to requiring geriatric psychiatry hospitalization due to hallucinations. His present worsening from his confused baseline is likely attributable to issues with both infection and recent alterations in electrolytes. However would be prudent to rule out other potential causes of acute confusional states. Provisional Treatment Plan: 1. Please continue psychotropics as currently ordered. 2. It would be prudent to avoid polypharmacy if possible. Please consider Seroquel 25 mg when necessary by mouth every 8 hours for agitation. Carefully weigh risks and benefits of medication administration versus more frequent staff observation and redirection as antipsychotics raise the risk of sudden and CVA in the elderly. 3. Please start melatonin 10 mg daily at bedtime. 4. Please continue to avoid benzodiazepines, opioid analgesics, and meds with strong anticholinergic properties as much as possible to prevent further confusion. 5. Please initiate the following nonpharmacologic interventions: -Avoid nursing and medical procedures during sleep hours whenever possible - Cluster at night interventions that must be completed as much as possible to minimize sleep disruption - Decrease noise patient area during sleeping hours - Reduce lighting at night - Ensure patient has any sensory aids close by that he regularly uses 6. Continue one-to-one sitter. 7. If delirium does not resolve consider drawing VDRL & Lyme titer. Thank you for including psychiatry in this case we'll continue to follow.
--- NOTE | 2017-02-01 19:53 | Cons- Infect Disease ---
General Information and HPI Consulting Request Date of Consult: 02/01/17 Requested By: RACH CHAVEZ MD Reason for Consult: Pneumonia Source of Information: patient Exam Limitations: dementia History of Present Illness: This is an 89-year-old man, [place] [facility] resident, with a history of hypertension and atrial fibrillation, maintained on Xarelto, admitted on January 29 after he was sent to the emergency room because of a fever and dizziness following several days of diarrhea. On admission he was febrile to 101.7. Laboratory data revealed a white blood cell count of 7000, BUN/creatinine 20 and 0.8, with normal liver enzymes. Urinalysis rare RBCs. Chest x-ray was negative. CT of the head was negative for any acute process. He was given Ceftriaxone and Azithromycin in the emergency room and was then followed off antibiotics. He defervesced, but on January 30 he had a low-grade fever to 100.3 with increased oxygen requirements, and he was begun on Unasyn. A chest x-ray January 31 revealed abnormal alveolar airspace disease at the right upper lobe, felt to be consistent with pneumonia. He has had no further fevers, his white blood cell count has remained normal and his oxygen requirements have decreased over the past 2 days. He is unable to provide any history secondary to dementia. Allergies/Medications Allergies: Coded Allergies: No Known Allergies (12/11/16) Home Med List: Donepezil HCl (Aricept) 5 MG TABLET 1 TAB PO AT BEDTIME MEMORY (Reported) Hydrochlorothiazide 25 MG TABLET 1 TAB PO DAILY WATER PILL (Reported) Metoprolol Succinate 50 MG TAB.ER.24H 1 TAB PO DAILY HEART (Reported) Pantoprazole Sodium 40 MG TABLET.DR 1 TAB PO DAILY GERD (Reported) Quetiapine Fumarate (Seroquel) 50 MG TABLET 1 TAB PO AT BEDTIME ANXIETY ( Reported) Quinapril HCl 20 MG TABLET 1 TAB PO DAILY BP (Reported) Rivaroxaban (Xarelto) 20 MG TABLET 1 TAB PO DAILY BLOOD THINNER (Reported) with food Simvastatin (Simvastatin*) 80 MG TABLET 1 TAB PO AT BEDTIME CHOLESTEROL ( Reported) Trazodone HCl 50 MG TABLET 1 TAB PO AT BEDTIME antidepressant (Reported) Past History Travel History Traveled to [place] past 21 day No Medical History Blood Transfusion Hx: No Neurological: Alzheimer's disease, dementia EENT: NONE Cardiovascular: AFIB, hypertension, hyperlipidemia, [place] ?2009 Respiratory: NONE Gastrointestinal: NONE Hepatic: NONE Renal: NONE Musculoskeletal: NONE Psychiatric: NONE Endocrine: NONE Blood Disorders: NONE Cancer(s): NONE History of MRSA: No History of VRE: No History of CDIFF: No Isolation History: Standard Surgical History Surgical History: unobtainable Psychosocial History Where Do You Live? Assisted Living Smoking Status: Former Smoker Review of Systems Comments Unobtainable Exam & Diagnostic Data Last 24 Hrs of Vital Signs/I&O Vital Signs Date Time Temp Pulse Resp B/P B/P Pulse O2 O2 Flow FiO2 Mean Ox Delivery Rate 02/01 1553 92 Nasal 3.0L Cannula 02/01 1425 98.3 96 20 110/63 96 Nasal 3.0L Cannula 02/01 1344 93 Nasal 3.0L Cannula 02/01 0856 103 140/88 02/01 0800 94 Nasal 2.0L Cannula 02/01 0719 97.6 103 20 140/88 96 Nasal 4.0L Cannula 02/01 0000 Nasal 4.0L Cannula 01/31 2231 98.6 109 20 108/70 93 Nasal 4.0L Cannula Intake & Output 02/01 1600 02/01 0800 02/01 0000 Intake Total 710 220 220 Output Total 301 501 Balance 409 220 -281 Intake, IV 110 100 100 Intake, Oral 600 120 120 Output, Stool 1 1 Output, Urine 300 500 Physical Exam Other Physical Findings: He is lethargic but arousable in no acute distress. He is covered in a large amount of liquid stool. He is afebrile. Skin reveals no rash. HEENT exam is negative. Neck is supple with no adenopathy. Lungs bilateral rhonchi. Heart regular rhythm with no murmur. Abdomen is soft, nontender with positive bowel sounds. Back no CVA tenderness. Extremities no cyanosis, clubbing or edema. Neuro is without focality. Last 24 Hours of Lab Results: Laboratory Tests 02/01 723 Chemistry Sodium (137 - 145 mmol/L) 141 Potassium (3.5 - 5.1 mmol/L) 3.7 Chloride (98 - 107 mmol/L) 99 Carbon Dioxide (22 - 30 mmol/L) 31 H Anion Gap (5 - 16) 11 BUN (9 - 20 mg/dL) 27 H Creatinine (0.7 - 1.2 mg/dL) 0.8 Estimated GFR (>60 ml/min) > 60 BUN/Creatinine Ratio (7 - 25 %) 33.8 H Hematology CBC w Diff NO MAN DIFF REQ WBC (4.8 - 10.8 /CUMM) 10.1 RBC (4.70 - 6.10 /CUMM) 3.94 L Hgb (14.0 - 18.0 G/DL) 13.0 L Hct (42 - 52 %) 38.5 L MCV (80.0 - 94.0 FL) 97.9 H MCH (27.0 - 31.0 PG) 33.1 H RDW (11.5 - 14.5 %) 13.8 Plt Count (130 - 400 /CUMM) 180 MPV (7.4 - 10.4 FL) 8.8 Gran % (42.2 - 75.2 %) 76.6 H Lymphocytes % (20.5 - 51.1 %) 15.5 L Monocytes % (1.7 - 9.3 %) 7.7 Eosinophils % (0 - 5 %) 0 Basophils % (0.0 - 2.0 %) 0.2 Absolute Granulocytes (1.4 - 6.5 /CUMM) 7.7 H Absolute Lymphocytes (1.2 - 3.4 /CUMM) 1.6 Absolute Monocytes (0.10 - 0.60 /CUMM) 0.8 H Absolute Eosinophils (0.0 - 0.7 /CUMM) 0 Absolute Basophils (0.0 - 0.2 /CUMM) 0 PUBS MCHC (33.0 - 37.0 G/DL) 33.8 Last 24 Hours of William Results: Blood cultures January 28 negative Urine culture January 28 negative Urine Legionella antigen January 28 negative Rapid flu swab January 29 negative Sputum culture January 30 reveals a scant growth of gram-negative rods and yeast Blood cultures January 30 negative Diagnostic Data Recent Imaging Findings: Chest x-ray January 31 reveals a focal airspace consolidation involving the right upper lobe, "worsened or new since the prior study" CT of the head January 29 no acute process Assessment/Plan Assessment/Plan Impression: This is an 89-year-old man, [place] [facility] resident, with dementia and a history of atrial fibrillation, maintained on Xarelto, admitted on January 29 with a history of fever and dizziness following several days of diarrhea, found on admission to have a fever with a normal white blood cell count and negative chest x-ray, with the development of a low-grade fever, increasing oxygen requirements and an evolving right upper lobe density on chest x-ray suggestive of pneumonia. With the isolation of gram-negative rods from his sputum his antibiotics can be broadened to cover Pseudomonas, pending final culture. His swallow evaluation revealed some problems with thin liquids with a delayed and incoordinated swallow initiation, raising concern for possible aspiration, and a modified barium swallow was recommended prior to advancing his diet. He had a significant amount of diarrhea this evening and, with his history of diarrhea prior to admission, C. difficile should be ruled out. Suggestion: 1. Stool for C. difficile 2. Follow-up final sputum culture 3. Consider a modified barium swallow 4. Discontinue Unasyn 5. Begin Ceftazidime 1 g IV every 12 hours pending above Consult Acknowledgment - Thank you for your consult request.
[2017-02-02 06:54] VITALS: BP 110/74
--- NOTE | 2017-02-02 07:14 | PN- Housestaff ---
Subjective Follow-up For: Altered mentation Gram negative pneumonia Barium swallow evaluation Subjective: I saw the patient today morning He is still asleep, had a good night sleep overnight. Went to barium swallow today. Review of Systems Constitutional: Reports: see HPI. Objective Last 24 Hrs of Vital Signs/I&O Vital Signs Date Time Temp Pulse Resp B/P B/P Pulse O2 O2 Flow FiO2 Mean Ox Delivery Rate 02/02 0654 97.7 94 20 110/74 94 Nasal 3.0L Cannula 02/02 0000 Nasal 2.0L Cannula 02/01 1600 94 Nasal 2.0L Cannula 02/01 1553 92 Nasal 3.0L Cannula 02/01 1425 98.3 96 20 110/63 96 Nasal 3.0L Cannula 02/01 1344 93 Nasal 3.0L Cannula 02/01 0856 103 140/88 02/01 0800 94 Nasal 2.0L Cannula 02/01 0719 97.6 103 20 140/88 96 Nasal 4.0L Cannula Intake & Output 02/02 0800 02/02 0000 02/01 1600 Intake Total 120 540 710 Output Total 301 Balance 120 540 409 Intake, IV 110 Intake, Oral 120 540 600 Number 3 Bowel Movements Output, Stool 1 Output, Urine 300 Physical Exam General Appearance: Alert Skin: No Rashes, No Breakdown HEENT: Atraumatic, PERRLA, EOMI Neck: Supple Cardiovascular: Normal S1, Normal S2 Lungs: Clear to Auscultation, Normal Air Movement Abdomen: Normal Bowel Sounds, Soft, No Tenderness Current Medications: Current Medications Sig/Dora Start time Last Medication Dose Route Stop Time Status Admin Albuterol Sulfate 3 ML EVERY 4 HRS/AWAKE 01/31 2000 AC 02/01 INH 195 Ampicillin Sodium/ 1,500 MG Q6H 01/30 2200 DC 02/01 Sulbactam Sodium IV 1616 Sodium Chloride 100 ML Atorvastatin Calcium 80 MG 1700 01/29 1700 AC 02/01 PO 1616 Ceftazidime 1,000 MG Q12 02/01 2200 AC 02/01 IV 2205 Donepezil HCl 5 MG AT BEDTIME 01/29 2200 AC 02/01 PO 214 Hydrochlorothiazide 25 MG DAILY 01/29 1234 AC 02/01 PO 0856 Melatonin 10 MG AT BEDTIME 02/01 2200 AC 02/01 PO 214 Metoprolol Succinate 50 MG DAILY 01/29 1000 AC 02/01 PO 0856 Potassium Chloride 40 MEQ ONCE ONE 02/01 1700 DC 02/01 PO 02/01 1701 1704 Quetiapine Fumarate 25 MG Q8P PRN 02/01 1845 AC PO Quetiapine Fumarate 50 MG AT BEDTIME 01/29 2200 AC 02/01 PO 2141 Rivaroxaban 20 MG 1700 01/29 1700 AC 02/01 PO 1616 Trazodone HCl 50 MG AT BEDTIME 01/29 2200 AC 02/01 PO 2141 Last 24 Hrs of Lab/William Results Last 24 Hrs of Labs/Mics: Laboratory Tests 02/02/17 0618: Anion Gap 8, Estimated GFR > 60, BUN/Creatinine Ratio 35.7 H Assessment/Plan Assessment: Patient is a 89 YO M BIBA from [facility] with history of altered mental status. According to the ED document the staff from the facility told that patient was having temperature of 101.7 and was not able to take anything orally. He developed hypotension in the emergency department, and was given IV fluids. Altered mental status Patient with history of dementia; AAO 3 at the time of our interview. * head CT ruled out any pathology. * Patient was from a dementia unit. Probably worsened with recent infection * Sitter in place, still altered * Swallow evaluation passed for pureed and honey thick liquids. * Psych consulted - appreciate their recommendations. Health care acquired pseudomonas pneumonia Patient presented with temperature of 101.7. He does not report any urinary or respiratory symptoms. Labs unremarkable. He has received IV ceftriaxone and IV azithromycin in the ED. * Most probably aspiration pneumonia in the setting of altered mentation. * Started on ceftazidime 1gm Q12 for suspected health care acquired pneumonia * we will change to oral medications from tomorrow. * Sputum culture grew pseudomonas - pansenstive * Oxygen demand is getting better. * Went for barium swallow evaluation today - passed for pureed and thin liquids hyponatremia - resolved Hypokalemia * Potassium 3.8 this morning * Recheck in the morning Alzheimer's dementia -depression * We will continue donepezil, Quetiapine, trazodone. Atrial fibrillation with controlled ventricular rate * We will continue tablet Xarelto 20 milligrams daily Hypertension * Restart quinupril as blood pressure is increasing from tomorrow. * continue metoprolol, hctz Hyperlipidemia * We will continue atorvastatin Diet- pureed and thin liquids DVT prophylaxis-ALP S/heparin CODE STATUS-FC Problem List: 1. Atrial fibrillation 2. Pneumonia Pain Ratin Pain Location: n/a Pain Goal: Pain 4 or less Pain Plan: tylenol prn Tomorrow's Labs & Rationales: none Consulting Request: Consulting Specialty: Infectious Disease Consulting Physician: Dr. Gillis Reason for Consult: Aspiration pneumonia
--- NOTE | 2017-02-02 11:30 | PN- Psychiatry ---
See Addendum Assessment/Plan Impression: Identifying Info: 89-year-old conserved single male with a known history of Alzheimer's dementia presents to [facility] emergency department on 01/28/2017 with chief complaint of altered mental status. Admitted to medicine in subsequently diagnosed with PNA and multiple electrolyte abnormalities. He is resident of a locked memory care patel at [facility]. Consult requested for eval of mental status and reccomendations. SUBJECTIVE (Attempted to arouse patient but only woke briefly.) Brief ROS Gait: did not observed Sleep: Adequate, slept through night. Now continues to sleep. Appetite: Consumes 50% of meals OBJECTIVE Mental Status Exam Presentation/Appearance: Hospital garb. Lying in bed. Patient is unable to respond to assessment questions Orientation: Wakes briefly when his name is stated Sensorium: Somnolent Eye contact: Poor Affect: Blunted Mood: Unable to assess Depression: Unable to assess Anxiety: Unable to assess Thought Content: - Unable to assess Thought Process: Povertyof content Associations: Unable to assess Speech: Minimal Judgment: Previoulsy assessed as poor Insight: Previoulsy assessed as poor Cognition: Memory: Profound deficits in short-term and long-term memory previously assessed Attention/Concentration: Severe impairment previously assessed Fund of Knowledge: Unable to assess Abstractions: Unable to assess MMSE: Unable to complete ASSESSMENT 89-year-old single male presents with altered mental status from locked unit at [facility]. Of note until December of this year this patient had been living independently prior to requiring geriatric psychiatry hospitalization due to hallucinations. His present worsening from his confused baseline is likely attributable to issues with both infection and recent alterations in electrolytes. At present he is somnolent which may be attributable to waxing and waning level of arousal due to delirium, medication, or poor sleep previous last night. Diagnosis Delirium due to multiple etiologies, acute, mixed level of activity By history major neurocognitive disorder due to Alzheimer's disease Suggestion: 1. Please continue psychotropics as currently ordered 2. If daytime somnolence continues it may be advisable to decrease his bedtime medications. It would be preferable to decrease trazodone or Seroquel first as both have high potential to cause adverse events then melatonin. Would not recommend this change at this time as somnolence may be attributable to delirium , continue to monitor. 3. Continue one-to-one sitter. 4. Please continue to avoid benzodiazepines, opioid analgesics, and meds with strong anticholinergic properties as much as possible to prevent further confusion. 5. Please initiate the following nonpharmacologic interventions: -Avoid nursing and medical procedures during sleep hours whenever possible - Cluster at night interventions that must be completed as much as possible to minimize sleep disruption - Decrease noise patient area during sleeping hours - Reduce lighting at night - Ensure patient has any sensory aids close by that he regularly uses Thank you for including psychiatry in this case we'll continue to follow. Subjective Subjective: as above Objective Last 24 Hrs of Vital Signs/I&O Current Medications Sig/Dora Start time Last Medication Dose Route Stop Time Status Admin Albuterol Sulfate 3 ML EVERY 4 HRS/AWAKE 01/30 2000 AC 02/02 INH 0836 Ampicillin Sodium/ 1,500 MG Q6H 01/30 220 DC 02/01 Sulbactam Sodium IV 1616 Sodium Chloride 100 ML Atorvastatin Calcium 80 MG 1700 01/29 1700 AC 02/01 PO 1616 Ceftazidime 1,000 MG Q12 02/01 2200 AC 02/02 IV 0852 Donepezil HCl 5 MG AT BEDTIME 01/29 2200 AC 02/01 PO 2141 Hydrochlorothiazide 25 MG DAILY 01/29 1234 AC 02/02 PO 0859 Melatonin 10 MG AT BEDTIME 02/01 2200 AC 02/01 PO 2141 Metoprolol Succinate 50 MG DAILY 01/29 1000 AC 02/02 PO 0900 Potassium Chloride 40 MEQ ONCE ONE 02/01 1700 DC 02/01 PO 02/01 1701 1704 Quetiapine Fumarate 25 MG Q8P PRN 02/01 1845 AC PO Quetiapine Fumarate 50 MG AT BEDTIME 01/29 2200 AC 02/01 PO 2141 Rivaroxaban 20 MG 1700 01/29 1700 AC 02/01 PO 1616 Trazodone HCl 50 MG AT BEDTIME 01/29 2200 AC 02/01 PO 2141 Laboratory Tests 02/02/17 0618: Anion Gap 8, Estimated GFR > 60, BUN/Creatinine Ratio 35.7 H Vital Signs Date Time Temp Pulse Resp B/P B/P Pulse O2 O2 Flow FiO2 Mean Ox Delivery Rate 02/02 0900 92 112/70 02/02 0841 92 Nasal 3.0L Cannula 02/02 08 93 Nasal 3.0L Cannula 02/02 0654 97.7 94 20 110/74 94 Nasal 3.0L Cannula 02/02 0000 Nasal 2.0L Cannula 02/01 1600 94 Nasal 2.0L Cannula 02/01 1553 92 Nasal 3.0L Cannula 02/01 1425 98.3 96 20 110/63 96 Nasal 3.0L Cannula 02/01 1344 93 Nasal 3.0L Cannula Intake & Output 02/02 1600 02/02 0800 02/02 0000 Intake Total 120 540 Output Total Balance 120 540 Intake, Oral 120 540 Number 3 Bowel Movements
[2017-02-02 14:35] VITALS: BP 112/72
--- NOTE | 2017-02-02 14:55 | RADIOLOGY REPORT ---
EXAMINATION: FL MODIFIED BARIUM SWALLOW CLINICAL INFORMATION: Dysphagia. COMPARISON: None TECHNIQUE: Modified barium swallow study with speech therapist. FINDINGS: No evidence of aspiration or penetration was noted at the time of the examination. Mild retention of food particles is noted within the vallecula at the time of the examination. FLUOROSCOPY TIME: 2 minutes, 5 seconds. NUMBER OF IMAGES: 9 IMPRESSION: No evidence of aspiration or penetration at the time of the examination. Full procedural detail will be dictated by the speech therapist.
--- NOTE | 2017-02-02 15:55 | PN- Infect Dx ---
Subjective Subjective: Afebrile without complaints Objective Last 24 Hrs of Vital Signs/I&O Vital Signs Date Time Temp Pulse Resp B/P B/P Pulse O2 O2 Flow FiO2 Mean Ox Delivery Rate 02/02 1435 97.7 100 18 112/72 96 Nasal 3.0L Cannula 02/02 0900 92 112/70 02/02 0841 92 Nasal 3.0L Cannula 02/02 0800 93 Nasal 3.0L Cannula 02/02 0654 97.7 94 20 110/74 94 Nasal 3.0L Cannula 02/02 0000 Nasal 2.0L Cannula 02/01 1600 94 Nasal 2.0L Cannula 02/01 1553 92 Nasal 3.0L Cannula Intake & Output 02/02 1600 02/02 0800 02/02 0000 Intake Total 240 120 540 Output Total 450 Balance -210 120 540 Intake, Oral 240 120 540 Number 0 3 Bowel Movements Output, Urine 450 Physical Exam Other Physical Findings: He is easily arousable in no acute distress Lungs scattered rhonchi bilaterally Heart regular rhythm with no murmur Abdomen soft, nontender with positive bowel sounds Extremities no cyanosis, clubbing or edema Results Last 24 Hours of Lab Results: Laboratory Tests 02/02 618 Chemistry Sodium (137 - 145 mmol/L) 143 Potassium (3.5 - 5.1 mmol/L) 3.8 Chloride (98 - 107 mmol/L) 104 Carbon Dioxide (22 - 30 mmol/L) 31 H Anion Gap (5 - 16) 8 BUN (9 - 20 mg/dL) 25 H Creatinine (0.7 - 1.2 mg/dL) 0.7 Estimated GFR (>60 ml/min) > 60 BUN/Creatinine Ratio (7 - 25 %) 35.7 H Last 24 Hours of William Results: Sputum culture January 30 positive for Pseudomonas sensitive to all antibiotics tested Blood cultures 2 January 30 negative Recent Imaging Studies: Modified barium swallow February 02 no evidence of aspiration or penetration at the time of the exam Assessment/Plan Impression: Stable, with temperatures and white blood cell count remaining normal, now on Ceftazidime for Pseudomonas pneumonia, with a recent chest x-ray revealing a new alveolar airspace disease at the right upper lobe, with the modified barium swallow study performed earlier today negative for any evidence of aspiration. Suggestion: 1. Continue Ceftazidime but if remains stable can change to Ciprofloxacin 500 mg po every 12 hours to complete a 10 day course of antibiotics
--- NOTE | 2017-02-02 20:29 | PN- Att Addend ---
Attending Addendum Attending Brief Note Earlier this morning he was more lethargic despite having slept all night patient is still a febrile. No major changes on physical her chest x-ray findings were noted labs were noted with the sputum on January 30 showed Pseudomonas and antibiotics were adjusted as per infectious diseases recommendations the blood cultures are negative so far the barium swallow showed no aspiration and we'll continue Dr. Gillis s recommendations and reevaluate in a.m. if stable or improved then we can start disposition plans to go back to assisted living. 24 TOTALS 02/02 0000 02/01 0000 Intake Total 1470 510 Output Total 301 501 Balance 1169 9 Intake, IV 210 360 Intake, Oral 1260 150 Number 3 0 Bowel Movements Output, Stool 1 1 Output, Urine 300 500 Current Medications Sig/Dora Start time Last Medication Dose Route Stop Time Status Admin Albuterol Sulfate 3 ML EVERY 4 HRS/AWAKE 01/31 2000 AC 02/02 INH 1626 Atorvastatin Calcium 80 MG 1700 01/29 1700 AC 02/02 PO 1721 Ceftazidime 1,000 MG Q12 02/01 220 AC 02/02 IV 0852 Donepezil HCl 5 MG AT BEDTIME 01/29 220 AC 02/01 PO 2141 Hydrochlorothiazide 25 MG DAILY 01/29 1234 AC 02/02 PO 0859 Melatonin 10 MG AT BEDTIME 02/01 2200 AC 02/01 PO 2141 Metoprolol Succinate 50 MG DAILY 01/29 1000 AC 02/02 PO 0900 Patient Medication 1 ED .STK-MED ONE 02/02 1316 [place] Teaching ED 02/02 1317 Quetiapine Fumarate 25 MG Q8P PRN 02/01 1845 AC PO Quetiapine Fumarate 50 MG AT BEDTIME 01/29 2200 AC 02/01 PO 2141 Rivaroxaban 20 MG 1700 01/29 1700 AC 02/02 PO 1721 Trazodone HCl 50 MG AT BEDTIME 01/29 220 AC 02/01 PO 2141 Laboratory Tests 02/02/17 0618: Anion Gap 8, Estimated GFR > 60, BUN/Creatinine Ratio 35.7 H 02/01/17 0723: Anion Gap 11, Estimated GFR > 60, BUN/Creatinine Ratio 33.8 H, CBC w Diff NO MAN DIFF REQ, RBC 3.94 L, MCV 97.9 H, MCH 33.1 H, RDW 13.8, MPV 8.8, Gran % 76.6 H, Lymphocytes % 15.5 L, Monocytes % 7.7, Eosinophils % 0, Basophils % 0.2, Absolute Granulocytes 7.7 H, Absolute Lymphocytes 1.6, Absolute Monocytes 0.8 H, Absolute Eosinophils 0, Absolute Basophils 0, PUBS MCHC 33.8
[2017-02-02 21:32] VITALS: BP 130/90
[2017-02-03 06:54] VITALS: BP 130/89
--- NOTE | 2017-02-03 07:02 | PN- Housestaff ---
Subjective Follow-up For: Psudomonas pneumonia (right upper lobe) Subjective: I saw and examined the patient today morning He is very lethargic and drowsy. Alert and oriented. Able to tolerate diet. Review of Systems Constitutional: Reports: see HPI. Comments: ROS negative except the above. Objective Last 24 Hrs of Vital Signs/I&O Vital Signs Date Time Temp Pulse Resp B/P B/P Pulse O2 O2 Flow FiO2 Mean Ox Delivery Rate 02/03 0654 98.5 86 22 130/89 96 Room Air 02/03 0000 Nasal 3.0L Cannula 02/02 2132 98.1 98 16 130/90 98 Nasal 3.0L Cannula 02/02 1627 Nasal 3.0L Cannula 02/02 1600 Nasal 3.0L Cannula 02/02 1435 97.7 100 18 112/72 96 Nasal 3.0L Cannula 02/02 0900 92 112/70 02/02 0841 92 Nasal 3.0L Cannula 02/02 0800 93 Nasal 3.0L Cannula Intake & Output 02/03 0800 02/03 0000 02/02 1600 Intake Total 50 240 Output Total 1 450 Balance 49 -210 Intake, Oral 50 240 Number 0 Bowel Movements Output, Stool 1 Output, Urine 450 Physical Exam General Appearance: Alert, Oriented X3, Cooperative Skin: No Rashes HEENT: Atraumatic, PERRLA Neck: Supple Cardiovascular: Normal S1, Normal S2 Lungs: Clear to Auscultation, Normal Air Movement Abdomen: Normal Bowel Sounds, Soft, No Tenderness Neurological: Normal Tone, Sensation Intact, Cranial Nerves 3-12 NL Extremities: No Clubbing, No Cyanosis Current Medications: Current Medications Sig/Dora Start time Last Medication Dose Route Stop Time Status Admin Albuterol Sulfate 3 ML EVERY 4 HRS/AWAKE 01/31 2000 AC 02/03 INH 1557 Atorvastatin Calcium 80 MG 1700 01/29 170 AC 02/03 PO 1716 Ceftazidime 1,000 MG Q12 02/01 2200 DC 02/03 IV 0904 Ciprofloxacin 500 MG BID 02/03 2200 AC PO 02/07 2159 Donepezil HCl 5 MG AT BEDTIME 01/29 2200 AC 02/02 PO 220 Hydrochlorothiazide 25 MG DAILY 01/29 1234 AC 02/03 PO 0905 Melatonin 10 MG AT BEDTIME 02/01 2200 AC 02/01 PO 214 Metoprolol Succinate 50 MG DAILY 01/29 1000 AC 02/03 PO 0905 Potassium Chloride 40 MEQ ONCE ONE 02/03 0845 DC 02/03 PO 02/03 0846 0906 Quetiapine Fumarate 25 MG AT BEDTIME 02/03 2200 AC PO Quetiapine Fumarate 25 MG Q8P PRN 02/01 1845 AC PO Quetiapine Fumarate 50 MG AT BEDTIME 01/29 2200 DC 02/02 PO 2200 Rivaroxaban 20 MG 1700 01/29 1700 AC 02/03 PO 1716 Trazodone HCl 50 MG AT BEDTIME 01/29 2200 AC 02/01 PO 2141 Last 24 Hrs of Lab/William Results Last 24 Hrs of Labs/Mics: Microbiology 02/02 2214 STOOL: Clostridium difficile Toxin A & B - COMP Assessment/Plan Assessment: Patient is a 89 YO M BIBA from [facility] with history of altered mental status. According to the ED document the staff from the facility told that patient was having temperature of 101.7 and was not able to take anything orally. Altered mental status Patient with history of dementia; AAO 3 at the time of our interview. * head CT ruled out any pathology. * Patient was from a dementia unit. Probably worsened with recent infection * Sitter in place. * Swallow evaluation passed for pureed and thin liquids. * Psych consulted - appreciate their recommendations. Health care acquired pseudomonas pneumonia Patient presented with temperature of 101.7. He does not report any urinary or respiratory symptoms. Labs unremarkable. He has received IV ceftriaxone and IV azithromycin in the ED. * Most probably aspiration pneumonia in the setting of altered mentation. * Started on ciprofloxacin 500mg BID today for a total of 10days. * Sputum culture grew pseudomonas - pansenstive * Oxygen demand is getting better. * Went for barium swallow evaluation today - passed for pureed and thin liquids hyponatremia - resolved Hypokalemia - resolved Alzheimer's dementia -depression * We will continue donepezil, Quetiapine, trazodone. Atrial fibrillation with controlled ventricular rate * We will continue tablet Xarelto 20 milligrams daily Hypertension * Restart quinupril as blood pressure is increasing from tomorrow. * continue metoprolol, hctz Hyperlipidemia * We will continue atorvastatin Diet- pureed and thin liquids DVT prophylaxis-ALP S/heparin CODE STATUS-FC Problem List: 1. Pneumonia 2. Fever 3. Hyperlipidemia 4. Hypertension Pain Ratin Pain Location: N/a Pain Goal: Pain 4 or less Pain Plan: tylenol prn Tomorrow's Labs & Rationales: none Consulting Request: Consulting Specialty: Infectious Disease Consulting Physician: Dr. Gillis Reason for Consult: Aspiration pneumonia Consulting Specialty: Infectious Disease Consulting Physician: Dr. Gillis Reason for Consult: Aspiration pneumonia
--- NOTE | 2017-02-03 12:29 | PN- Att Addend ---
Attending Addendum Attending Brief Note Patient looking a little better today. His brighter patient is very hard of hearing but answering questions appropriately and oxygen is still on. Vital signs are stable he has no fever and no major changes on physical. Will try to taper down the oxygen check the chest x-ray and white count if all is stable and we can start disposition plans to return to assisted living. Vital Signs Date Time Temp Pulse Resp B/P B/P Pulse O2 O2 Flow FiO2 Mean Ox Delivery Rate 02/03 0905 112 124/82 02/03 0813 93 Nasal 3.0L Cannula 02/03 0654 98.5 86 22 130/89 96 Room Air 02/03 0000 Nasal 3.0L Cannula 02/02 2132 98.1 98 16 130/90 98 Nasal 3.0L Cannula 02/02 1627 Nasal 3.0L Cannula 02/02 1600 Nasal 3.0L Cannula 02/02 1435 97.7 100 18 112/72 96 Nasal 3.0L Cannula 24 TOTALS 02/03 0000 02/02 0000 Intake Total 410 1470 Output Total 451 301 Balance -41 1169 Intake, IV 210 Intake, Oral 410 1260 Number 0 3 Bowel Movements Output, Stool 1 1 Output, Urine 450 300 Current Medications Sig/Dora Start time Last Medication Dose Route Stop Time Status Admin Albuterol Sulfate 3 ML EVERY 4 HRS/AWAKE 01/30 2000 AC 02/03 INH 0811 Atorvastatin Calcium 80 MG 1700 01/29 1700 AC 02/02 PO 1721 Ceftazidime 1,000 MG Q12 02/01 2200 AC 02/03 IV 0904 Donepezil HCl 5 MG AT BEDTIME 01/29 220 AC 02/02 PO 2200 Hydrochlorothiazide 25 MG DAILY 01/29 1234 AC 02/03 PO 0905 Melatonin 10 MG AT BEDTIME 02/01 2200 AC 02/01 PO 2141 Metoprolol Succinate 50 MG DAILY 01/29 1000 AC 02/03 PO 0905 Patient Medication 1 ED .STK-MED ONE 02/02 1316 DC Teaching ED 02/02 1317 Potassium Chloride 40 MEQ ONCE ONE 02/03 0845 HI 02/03 PO 02/03 0846 0906 Quetiapine Fumarate 25 MG AT BEDTIME 02/03 2200 AC PO Quetiapine Fumarate 25 MG Q8P PRN 02/01 1845 AC PO Quetiapine Fumarate 50 MG AT BEDTIME 01/29 2200 DC 02/02 PO 2200 Rivaroxaban 20 MG 1700 01/29 1700 AC 02/02 PO 1721 Trazodone HCl 50 MG AT BEDTIME 01/29 2200 AC 02/01 PO 2141 Laboratory Tests 02/02/17 0618: Anion Gap 8, Estimated GFR > 60, BUN/Creatinine Ratio 35.7 H Microbiology Date/Time Procedure - Status Source Growth 02/02 2214 Clostridium difficile Toxin A & B - RECD STOOL
[2017-02-03 14:38] VITALS: BP 100/71
--- NOTE | 2017-02-03 15:10 | PN- Infect Dx ---
Subjective Subjective: Afebrile without complaints Objective Last 24 Hrs of Vital Signs/I&O Vital Signs Date Time Temp Pulse Resp B/P B/P Pulse O2 O2 Flow FiO2 Mean Ox Delivery Rate 02/03 1438 97.8 110 20 100/71 93 Nasal 3.0L Cannula 02/03 0905 112 124/82 02/03 0813 93 Nasal 3.0L Cannula 02/03 0654 98.5 86 22 130/89 96 Room Air 02/03 0000 Nasal 3.0L Cannula 02/02 2132 98.1 98 16 130/90 98 Nasal 3.0L Cannula 02/02 1627 Nasal 3.0L Cannula 02/02 1600 Nasal 3.0L Cannula Intake & Output 02/03 1600 02/03 0800 02/03 0000 Intake Total 50 Output Total 500 1 Balance -500 49 Intake, Oral 50 Number 1 Bowel Movements Output, Stool 1 Output, Urine 500 Patient 153 lb Weight Physical Exam Other Physical Findings: He is awake and alert in no acute distress Lungs scattered rhonchi Heart regular rhythm with no murmur Extremities no cyanosis, clubbing or edema Results Last 24 Hours of Lab Results: No labs from today Last 24 Hours of William Results: Stool C. difficile February 02 negative Blood cultures 2 January 30 negative Assessment/Plan Impression: Remains stable with temperatures and white blood cell count normal on Ceftazidime Day 2 of treatment for Pseudomonas pneumonia, with a recent chest x- ray revealing new alveolar airspace disease at the right upper lobe. Suggestion: 1. Discontinue Ceftazidime 2. Begin Ciprofloxacin 500 mg po every 12 hours to complete a 10 day course of antibiotics
[2017-02-03 21:41] VITALS: BP 110/66
[2017-02-04 06:17] VITALS: BP 118/82
--- NOTE | 2017-02-04 07:24 | PN- Housestaff ---
Subjective Follow-up For: Pseudomonas pneumonia Dementia Subjective: I saw and examined the patient today morning He is doing well, alert and oriented. Able to communicate well. No acute overnight events. Still on 3L oxygen Review of Systems Constitutional: Reports: see HPI. Comments: ROS negative except the above Objective Last 24 Hrs of Vital Signs/I&O Vital Signs Date Time Temp Pulse Resp B/P B/P Pulse O2 O2 Flow FiO2 Mean Ox Delivery Rate 02/04 0617 97.9 78 20 118/82 92 Nasal 3.0L Cannula 02/04 0000 Nasal 3.0L Cannula 02/03 2141 98.0 105 21 110/66 91 Nasal 3.0L Cannula 02/03 1956 95 Nasal 3.0L Cannula 02/03 1633 96 Nasal 3.0L Cannula 02/03 1438 97.8 110 20 100/71 93 Nasal 3.0L Cannula 02/03 0905 112 124/82 02/03 0813 93 Nasal 3.0L Cannula Intake & Output 02/04 0800 02/04 0000 02/03 1600 Intake Total Output Total 100 500 Balance -100 -500 Number 1 1 Bowel Movements Output, Urine 100 500 Patient 69.4 kg Weight Physical Exam General Appearance: Alert, Cooperative, No Acute Distress, oriented Skin: No Rashes, No Breakdown, erthema around the scrotal region. HEENT: Atraumatic, PERRLA, EOMI Neck: Supple Cardiovascular: Normal S1, Normal S2 Lungs: Clear to Auscultation, Normal Air Movement Abdomen: Normal Bowel Sounds, Soft, No Tenderness Neurological: Normal Tone, Sensation Intact Extremities: No Clubbing, No Cyanosis Current Medications: Current Medications Sig/Dora Start time Last Medication Dose Route Stop Time Status Admin Albuterol Sulfate 3 ML EVERY 4 HRS/AWAKE 01/31 2000 AC 02/03 INH 194 Atorvastatin Calcium 80 MG 1700 01/29 1700 AC 02/03 PO 171 Ceftazidime 1,000 MG Q12 02/01 2200 DC 02/03 IV 09 Ciprofloxacin 500 MG BID 02/03 2200 AC 02/03 PO 02/07 Donepezil HCl 5 MG AT BEDTIME 01/29 2200 AC 02/03 PO 2057 Hydrochlorothiazide 25 MG DAILY 01/29 1234 AC 02/03 PO 09 Melatonin 10 MG AT BEDTIME 02/01 2200 AC 02/03 PO 2057 Metoprolol Succinate 50 MG DAILY 01/29 1000 AC 02/03 PO 0905 Nystatin 1 JOCELYN TID 02/04 0300 AC 02/04 TOP 0528 Potassium Chloride 40 MEQ ONCE ONE 02/03 0845 DC 02/03 PO 02/03 0846 0906 Quetiapine Fumarate 25 MG AT BEDTIME 02/03 2200 AC 02/03 PO 2057 Quetiapine Fumarate 25 MG Q8P PRN 02/01 1845 AC PO Quetiapine Fumarate 50 MG AT BEDTIME 01/29 2200 DC 02/02 PO 2199 Rivaroxaban 20 MG 1700 01/29 1700 AC 02/03 PO 171 Trazodone HCl 50 MG AT BEDTIME 01/29 2200 AC 02/03 PO 2057 Assessment/Plan Assessment: Patient is a 89 YO M BIBA from [facility] with history of altered mental status. According to the ED document the staff from the facility told that patient was having temperature of 101.7 and was not able to take anything orally. Altered mental status Patient with history of dementia; AAO 3 at the time of our interview. * head CT ruled out any pathology. * Patient was from a dementia unit. Probably worsened with recent infection * Sitter in place. * Swallow evaluation passed for pureed and thin liquids. * Psych consulted - appreciate their recommendations. Health care acquired pseudomonas pneumonia Patient presented with temperature of 101.7. He does not report any urinary or respiratory symptoms. Labs unremarkable. He has received IV ceftriaxone and IV azithromycin in the ED. * Most probably aspiration pneumonia in the setting of altered mentation. * Started on ciprofloxacin 500mg BID today for a total of 10days - till 02/11/17. * Sputum culture grew pseudomonas - pansenstive * Oxygen demand is still 3L. * Went for barium swallow evaluation - passed for pureed and thin liquids Rash in the genital region * desitin and nystatin powder hyponatremia - resolved Hypokalemia - resolved Alzheimer's dementia -depression * We will continue donepezil, Quetiapine, trazodone. Atrial fibrillation with controlled ventricular rate * We will continue tablet Xarelto 20 milligrams daily Hypertension * Restart quinupril as blood pressure is increasing from tomorrow. * continue metoprolol, hctz Hyperlipidemia * We will continue atorvastatin Diet- pureed and thin liquids DVT prophylaxis-ALP S/heparin CODE STATUS-FC Problem List: 1. Pneumonia 2. Fever 3. Neurocognitive disorder Pain Ratin Pain Location: n/a Pain Goal: Pain 4 or less Pain Plan: tylenol prn Tomorrow's Labs & Rationales: none Consulting Request: Consulting Specialty: Infectious Disease Consulting Physician: Dr. Gillis Reason for Consult: Aspiration pneumonia
--- NOTE | 2017-02-04 09:10 | Patient Discharge Instructions ---
Discharge Instructions General Discharge Information You were seen/treated for: psuedomonas pneumonia Altered mentation Special Instructions: Please follow up with in a week Diet Recommended Diet: pureed and thin liquid Activity Activity Self Limited: Yes Acute Coronary Syndrome Inclusion Criteria At DC or during hospital stay patient has or had the following: ACS DIAGNOSIS No Discharge Core Measures Meds if any: Prescribed or Continued at Discharge Meds if any: NOT Prescribed or Continued at Discharge Congestive Heart Failure Inclusion Criteria At DC or during hospital stay patient has or had the following: CHF DIAGNOSIS No Discharge Core Measures Meds if any: Prescribed or Continued at Discharge Meds if any: NOT Prescribed or Continued at Discharge Cerebrovascular accident Inclusion Criteria At DC or during hospital stay patient has or had the following: CVA/TIA Diagnosis No Discharge Core Measures Meds if any: Prescribed or Continued at Discharge Meds if any: NOT Prescribed or Continued at Discharge Venous thromboembolism Inclusion Criteria VTE Diagnosis No VTE Type NONE VTE Confirmed by (Test) NONE Discharge Core Measures - Per Current guidelines, there needs to be overlap - treatment for the first 5 days of Warfarin therapy. - If discharged on Warfarin prior to 5 days of - overlap therapy, the patient will need to be - assessed for post discharge needs including - *Post discharge parental anticoagulation - *Warfarin and/or parental anticoagulation education - *Follow up date to check INR post discharge At least 5 days overlap therapy as Inpatient No Meds if any: Prescribed or Continued at Discharge Note: Overlap Therapy is Warfarin and Anticoagulant Meds if any: NOT Prescribed or Continued at Discharge
--- NOTE | 2017-02-04 11:28 | PN- Psychiatry ---
Assessment/Plan Impression: Identifying Info: 89-year-old conserved single male with a known history of Alzheimer's dementia presents to [facility] emergency department on 01/28/2017 with chief complaint of altered mental status. Admitted to medicine in subsequently diagnosed with PNA and multiple electrolyte abnormalities. He is resident of a locked memory care patel at [facility]. Consult requested for eval of mental status and reccomendations. SUBJECTIVE Patient is awake on approach but quite confused and disorganized states "I never do something, it's a family thing." When asked how to spell his name he states he is unsure but I should be able to check a manual. Brief ROS Gait: did not observe Sleep: Adequate and improved. No issues overnight Appetite: Consumed 100% of breakfast OBJECTIVE Mental Status Exam Presentation/Appearance: Hospital garb, well-groomed. Lying in bed. Patient is unable to respond to assessment questions in an appropriate manner. Orientation: Oriented to self only states year as "approximately a result" states place as [place] Sensorium: Awake and alert Eye contact: Fair Affect: Blunted Mood: Denies disturbance Depression: Unable to assess Anxiety: Unable to assess Thought Content: - Unable to assess Thought Process: Disorganized confused Associations: Unable to assess Speech: Rambling Judgment: Poor Insight: Ppoor Cognition: Memory: Profound deficits in short-term and long-term memory Attention/Concentration: Severe impairment Fund of Knowledge: Unable to assess Abstractions: Unable to assess MMSE: Unable to complete Nursing reports that the patient remains very confused. He has attempted to get out of bed a few times, citing a snowstorm that needed adressing. He is redirectable but can be difficult to redirect at times. His one-to-one sitter has been discontinued. ASSESSMENT 89-year-old single male presents with altered mental status from locked unit at [facility]. Of note until December of this year this patient had been living independently prior to requiring geriatric psychiatry hospitalization due to hallucinations. His present worsening from his confused baseline is likely attributable to issues with both infection and recent alterations in electrolytes. At present he remains confused, appears to be as described at baseline. Diagnosis Delirium due to multiple etiologies, acute, mixed level of activity, resolved By history major neurocognitive disorder due to Alzheimer's disease Suggestion: 1. Please continue psychotropics as currently ordered 2. Please continue to avoid benzodiazepines, opioid analgesics, and meds with strong anticholinergic properties as much as possible to prevent further confusion. 3. Please continue the following nonpharmacologic interventions: -Avoid nursing and medical procedures during sleep hours whenever possible - Cluster at night interventions that must be completed as much as possible to minimize sleep disruption - Decrease noise patient area during sleeping hours - Reduce lighting at night - Ensure patient has any sensory aids close by that he regularly uses Thank you for including psychiatry in this case we'll continue to follow. A total of 30 minutes was spent with the patient with more than 50% of the time spent in counseling and/or coordination of care. Subjective Subjective: as above Objective Last 24 Hrs of Vital Signs/I&O Current Medications Sig/Dora Start time Last Medication Dose Route Stop Time Status Admin Albuterol Sulfate 3 ML EVERY 4 HRS/AWAKE 01/31 2000 AC 02/04 INH 0859 Atorvastatin Calcium 80 MG 01/29 170 AC 02/03 PO 171 Ceftazidime 1,000 MG Q12 02/01 220 DC 02/03 IV 0904 Ciprofloxacin 500 MG BID 02/03 2200 AC 02/04 PO 02/07 215 0918 Donepezil HCl 5 MG AT BEDTIME 01/29 2200 AC 02/03 PO 2057 Hydrochlorothiazide 25 MG DAILY 01/29 1234 AC 02/04 PO 0918 Melatonin 10 MG AT BEDTIME 02/01 2200 AC 02/03 PO 2057 Metoprolol Succinate 50 MG DAILY 01/29 1000 AC 02/04 PO 0918 Nystatin 1 JOCELYN TID 02/04 0300 AC 02/04 TOP 0918 Quetiapine Fumarate 25 MG AT BEDTIME 02/03 220 AC 02/03 PO 2057 Quetiapine Fumarate 25 MG Q8P PRN 02/01 1845 AC PO Rivaroxaban 20 MG 1700 01/29 1700 AC 02/03 PO 171 Trazodone HCl 50 MG AT BEDTIME 01/29 220 AC 02/03 PO 2057 Vital Signs Date Time Temp Pulse Resp B/P B/P Pulse O2 O2 Flow FiO2 Mean Ox Delivery Rate 02/04 1016 18 92 Nasal 3.0L Cannula 02/04 0918 76 120/84 02/04 0903 88 Nasal 3.0L Cannula 02/04 0800 92 Nasal 3.0L Cannula 02/04 0617 97.9 78 20 118/82 92 Nasal 3.0L Cannula 02/04 0000 Nasal 3.0L Cannula 02/03 2141 98.0 105 21 110/66 91 Nasal 3.0L Cannula 02/03 1956 95 Nasal 3.0L Cannula 02/03 1633 96 Nasal 3.0L Cannula 02/03 1438 97.8 110 20 100/71 93 Nasal 3.0L Cannula Intake & Output 02/04 1600 02/04 0800 02/04 0000 Intake Total Output Total 100 Balance -100 Number 1 Bowel Movements Output, Urine 100
--- NOTE | 2017-02-04 13:05 | PN- Infect Dx ---
Subjective Subjective: Afebrile without complaints Objective Last 24 Hrs of Vital Signs/I&O Vital Signs Date Time Temp Pulse Resp B/P B/P Pulse O2 O2 Flow FiO2 Mean Ox Delivery Rate 02/04 1016 18 92 Nasal 3.0L Cannula 02/04 0918 76 120/84 02/04 0903 88 Nasal 3.0L Cannula 02/04 0800 92 Nasal 3.0L Cannula 02/04 0617 97.9 78 20 118/82 92 Nasal 3.0L Cannula 02/04 0000 Nasal 3.0L Cannula 02/03 2141 98.0 105 21 110/66 91 Nasal 3.0L Cannula 02/03 1956 95 Nasal 3.0L Cannula 02/03 1633 96 Nasal 3.0L Cannula 02/03 1438 97.8 110 20 100/71 93 Nasal 3.0L Cannula Intake & Output 02/04 1600 02/04 0800 02/04 0000 Intake Total Output Total 100 Balance -100 Number 1 Bowel Movements Output, Urine 100 Physical Exam Other Physical Findings: He appears comfortable in no acute distress Lungs are clear Heart regular rhythm with no murmur Abdomen soft, nontender with positive bowel sounds Extremities no cyanosis, clubbing or edema Results Last 24 Hours of Lab Results: No new labs from today Last 24 Hours of William Results: No new cultures Assessment/Plan Impression: Stable with temperatures and white blood cell count remaining normal now on Ciprofloxacin Day 3 of treatment for presumed Pseudomonas pneumonia, with a recent chest x-ray revealing new alveolar airspace disease at the right upper lobe. Suggestion: 1. Continue Ciprofloxacin for 1 more week
[2017-02-04 16:00] VITALS: BP 118/78
[2017-02-04] MEDS ORDERED: CIPRO500 M1 PO (16:01)
--- NOTE | 2017-02-04 18:12 | PN- Att Addend ---
Attending Addendum Attending Brief Note Feeling a little better little brighter, no respiratory distress the vital signs are stable no fever with no major changes on physical the sitter will be discontinued and have a lunchroom monitor stable hopefully going back to assisted living in the morning Current Medications Sig/Dora Start time Last Medication Dose Route Stop Time Status Admin Albuterol Sulfate 3 ML EVERY 4 HRS/AWAKE 01/30 2000 AC 02/04 INH 1641 Atorvastatin Calcium 80 MG 1700 01/29 1700 AC 02/04 PO 1621 Ciprofloxacin 500 MG BID 02/03 2200 AC 02/04 PO 02/07 2159 0918 Donepezil HCl 5 MG AT BEDTIME 01/29 2200 AC 02/03 PO 205 Hydrochlorothiazide 25 MG DAILY 01/29 1234 AC 02/04 PO 0918 Melatonin 10 MG AT BEDTIME 02/01 220 AC 02/03 PO 2057 Metoprolol Succinate 50 MG DAILY 01/29 1000 AC 02/04 PO 0918 Nystatin 1 JOCELYN TID 02/04 0300 AC 02/04 TOP 0918 Quetiapine Fumarate 25 MG AT BEDTIME 02/03 2200 AC 02/03 PO 2057 Quetiapine Fumarate 25 MG Q8P PRN 02/01 1845 AC PO Rivaroxaban 20 MG 1700 01/29 1700 AC 02/04 PO 1621 Trazodone HCl 50 MG AT BEDTIME 01/29 220 AC 02/03 PO 205 Zinc Oxide 1 JOCELYN BID 02/04 1343 AC 02/04 TOP 1426 Vital Signs Date Time Temp Pulse Resp B/P B/P Pulse O2 O2 Flow FiO2 Mean Ox Delivery Rate 02/04 1643 94 Nasal 3.0L Cannula 02/04 1600 98.9 76 18 118/78 94 Nasal 3.0L Cannula 02/04 1600 94 Nasal 3.0L Cannula 02/04 1016 18 92 Nasal 3.0L Cannula 02/04 0918 76 120/84 02/04 0903 88 Nasal 3.0L Cannula 02/04 0800 92 Nasal 3.0L Cannula 02/04 0617 97.9 78 20 118/82 92 Nasal 3.0L Cannula 02/04 0000 Nasal 3.0L Cannula 02/03 2141 98.0 105 21 110/66 91 Nasal 3.0L Cannula 02/03 1956 95 Nasal 3.0L Cannula Vital Signs Date Time Temp Pulse Resp B/P B/P Pulse O2 O2 Flow FiO2 Mean Ox Delivery Rate 02/04 1643 94 Nasal 3.0L Cannula 02/05 1600 98.9 76 18 118/78 94 Nasal 3.0L Cannula 02/05 1600 94 Nasal 3.0L Cannula 02/04 1016 18 92 Nasal 3.0L Cannula Intake & Output 02/04 1600 Intake Total 800 Output Total 350 Balance 450 Intake, Oral 800 Output, Urine 350
[2017-02-04 22:26] VITALS: BP 98/64
[2017-02-05 07:22] VITALS: BP 156/90
--- NOTE | 2017-02-05 08:44 | PN- Housestaff ---
Subjective Follow-up For: Pseudomonas pneumonia Dementia Complaints: pain scale (0-10) Subjective: Patient was seen and examined this morning He is alert, awake and oriented to time place and person. However he looks lethargic this morning. Not eating his breakfast, couldn't swallow. Offers no complaints Able to follow commands no Acute overnight events Vitals were stable Review of Systems Constitutional: Denies: chills, diaphoresis, fever, malaise. Objective Last 24 Hrs of Vital Signs/I&O Vital Signs Date Time Temp Pulse Resp B/P B/P Pulse O2 O2 Flow FiO2 Mean Ox Delivery Rate 02/05 1229 86 142/88 02/05 0845 96 Nasal 3.0L Cannula 02/05 0800 94 Nasal 3.0L Cannula 02/05 0722 98.4 90 18 156/90 98 Nasal 3.0L Cannula 02/04 2226 98.5 93 18 98/64 92 Nasal 3.0L Cannula 02/04 1643 94 Nasal 3.0L Cannula 02/04 1600 98.9 76 18 118/78 94 Nasal 3.0L Cannula 02/04 1600 94 Nasal 3.0L Cannula Intake & Output 02/05 1600 02/05 0800 02/05 0000 Intake Total 120 840 Output Total 1100 Balance 120 -260 Intake, Oral 120 840 Output, Urine 1100 Physical Exam General Appearance: Alert, Oriented X3 Skin: No Rashes HEENT: Atraumatic, PERRLA, EOMI, Mucous Membr. moist/pink Neck: Supple, No JVD Lymphatic: Cervical nl Cardiovascular: Normal S1, Normal S2 Lungs: Normal Air Movement Abdomen: Normal Bowel Sounds, Soft, No Tenderness Extremities: No Clubbing, No Cyanosis, No Edema Vascular: Pulses Symmetrical Current Medications: Current Medications Sig/Dora Start time Last Medication Dose Route Stop Time Status Admin Albuterol Sulfate 3 ML EVERY 4 HRS/AWAKE 01/31 2000 AC 02/05 INH 0844 Atorvastatin Calcium 80 MG 1700 01/29 1700 AC 02/04 PO 162 Ciprofloxacin 500 MG BID 02/03 2200 AC 02/04 PO 02/07 Donepezil HCl 5 MG AT BEDTIME 01/29 2200 AC 02/04 PO 2115 Hydrochlorothiazide 25 MG DAILY 01/29 1234 AC 02/04 PO 0918 Melatonin 10 MG AT BEDTIME 02/01 2200 AC 02/04 PO 2114 Metoprolol Succinate 50 MG DAILY 01/29 1000 AC 02/04 PO 0918 Nystatin 1 JOCELYN TID 02/04 0300 AC 02/05 TOP 0922 Quetiapine Fumarate 25 MG AT BEDTIME 02/03 2200 AC 02/04 PO 2115 Quetiapine Fumarate 25 MG Q8P PRN 02/01 1845 AC PO Rivaroxaban 20 MG 1700 01/29 1700 AC 02/04 PO 1621 Trazodone HCl 25 MG AT BEDTIME 02/05 2200 UNVr PO Trazodone HCl 50 MG AT BEDTIME 01/29 2200 DC 02/04 PO 2114 Zinc Oxide 1 JOCELYN BID 02/04 1343 AC 02/05 TOP 0922 Assessment/Plan Assessment: Patient is a 89 YO M BIBA from [facility] with history of altered mental status. According to the ED document the staff from the facility told that patient was having temperature of 101.7 and was not able to take anything orally. Altered mental status Patient with history of dementia; AAO 3 at the time of our interview. * head CT ruled out any pathology. * Patient was from a dementia unit. Probably worsened with recent infection * Sitter in place. * Swallow evaluation passed for pureed and thin liquids. * Psych consulted - appreciate their recommendations. Health care acquired pseudomonas pneumonia Patient presented with temperature of 101.7. He does not report any urinary or respiratory symptoms. Labs unremarkable. He has received IV ceftriaxone and IV azithromycin in the ED. * Most probably aspiration pneumonia in the setting of altered mentation. * Started on ciprofloxacin 500mg BID today for a total of 10days - till 02/11/17. * Sputum culture grew pseudomonas - pansenstive * Oxygen demand is still 3L. * Went for barium swallow evaluation - passed for pureed and thin liquids Rash in the genital region * desitin and nystatin powder hyponatremia - resolved Hypokalemia - resolved Alzheimer's dementia -depression * We will continue donepezil, Quetiapine, trazodone. trazadone decreased to 25 mg from 50 mg Atrial fibrillation with controlled ventricular rate * We will continue tablet Xarelto 20 milligrams daily Hypertension * Restart quinupril as blood pressure is increasing from tomorrow. * continue metoprolol, hctz Hyperlipidemia * We will continue atorvastatin Diet- pureed and thin liquids DVT prophylaxis-ALP S/heparin CODE STATUS-FC Problem List: 1. Pneumonia 2. Fever Pain Ratin Pain Location: n/a Pain Goal: Remain pain free Pain Plan: tylinol Tomorrow's Labs & Rationales: none Consulting Request: Consulting Specialty: Infectious Disease Consulting Physician: Dr. Gillis Reason for Consult: Aspiration pneumonia
--- NOTE | 2017-02-05 12:18 | PN- Pulmonary ---
Subjective HPI/Critical Care Issues: Afebrile without complaints Lethargic Not eating today Objective Current Medications: Current Medications Sig/Dora Start time Last Medication Dose Route Stop Time Status Admin Albuterol Sulfate 3 ML EVERY 4 HRS/AWAKE 01/31 2000 AC 02/05 INH 0844 Atorvastatin Calcium 80 MG 1700 01/29 1700 AC 02/04 PO 1621 Ciprofloxacin 500 MG BID 02/03 2200 AC 02/04 PO 02/07 2159 2114 Donepezil HCl 5 MG AT BEDTIME 01/29 220 AC 02/04 PO 2116 Hydrochlorothiazide 25 MG DAILY 01/29 1234 AC 02/04 PO 0918 Melatonin 10 MG AT BEDTIME 02/01 220 AC 02/04 PO 211 Metoprolol Succinate 50 MG DAILY 01/29 1000 AC 02/04 PO 0918 Nystatin 1 JOCELYN TID 02/04 0300 AC 02/05 TOP 0922 Quetiapine Fumarate 25 MG AT BEDTIME 02/03 2200 AC 02/04 PO 211 Quetiapine Fumarate 25 MG Q8P PRN 02/01 1845 AC PO Rivaroxaban 20 MG 0 01/29 1700 AC 02/04 PO 1621 Trazodone HCl 50 MG AT BEDTIME 01/29 220 AC 02/04 PO 2114 Zinc Oxide 1 JOCELYN BID 02/04 1343 AC 02/05 TOP 0922 Vital Signs & I&O Last 24 Hrs of Vitals and I&O: Vital Signs Date Time Temp Pulse Resp B/P B/P Pulse O2 O2 Flow FiO2 Mean Ox Delivery Rate 02/05 0845 96 Nasal 3.0L Cannula 02/05 0800 94 Nasal 3.0L Cannula 02/05 0722 98.4 90 18 156/90 98 Nasal 3.0L Cannula 02/04 2226 98.5 93 18 98/64 92 Nasal 3.0L Cannula 02/04 1643 94 Nasal 3.0L Cannula 02/04 1600 98.9 76 18 118/78 94 Nasal 3.0L Cannula 02/04 1600 94 Nasal 3.0L Cannula Intake & Output 02/05 1600 02/05 0800 02/05 0000 Intake Total 120 840 Output Total 1100 Balance 120 -260 Intake, Oral 120 840 Output, Urine 1100 Impression/Plan Impression/Plan Impression/Plan: Pt with dementia with AMS ISsues PNA prob pseudomonas Dementia worsening Rash Resolved hyponatremia and hypokalemia Dementia Afib HTN Hyperlipedemia REC cont abx watch mental status Reduce trazadone to 25 at hs Will follow
[2017-02-05 14:00] VITALS: BP 128/64
[2017-02-05 18:18] VITALS: BP 120/68
[2017-02-06 07:28] VITALS: BP 112/72
--- NOTE | 2017-02-06 07:50 | PN- Housestaff ---
Subjective Follow-up For: Altered mental status Pseudomonas penumonia Subjective: I saw the patient today morning He is still asleep, altered and confused at times. Review of Systems Constitutional: Reports: see HPI. Comments: ROS negative except the above. Objective Last 24 Hrs of Vital Signs/I&O Vital Signs Date Time Temp Pulse Resp B/P B/P Pulse O2 O2 Flow FiO2 Mean Ox Delivery Rate 02/06 2202 98.1 81 20 120/72 96 Nasal 4.0L Cannula 02/06 2155 93 Nasal 1.0L Cannula 02/06 1600 95 Nasal 3.0L Cannula 02/06 1346 98.2 85 20 126/78 95 02/06 0902 94 Nasal 3.0L Cannula 02/06 0843 89 112/72 02/06 0800 Nasal 3.0L Cannula 02/06 0728 98.1 89 18 112/72 96 Nasal 3.0L Cannula 02/06 0000 Nasal 2.0L Cannula Intake & Output 02/06 1600 02/06 0800 02/06 0000 Intake Total 500 240 600 Output Total 350 350 200 Balance 150 -110 400 Intake, Oral 500 240 600 Output, Urine 350 350 200 Physical Exam General Appearance: Alert Skin: No Rashes, No Breakdown HEENT: Atraumatic, PERRLA, EOMI Neck: Supple Cardiovascular: Normal S1, Normal S2 Lungs: Clear to Auscultation, Normal Air Movement Abdomen: Normal Bowel Sounds, Soft, No Tenderness Neurological: Normal Tone, Sensation Intact Extremities: No Clubbing, No Cyanosis Vascular: Normal Pulses Current Medications: Current Medications Sig/Dora Start time Last Medication Dose Route Stop Time Status Admin Albuterol Sulfate 3 ML BID 02/05 2200 AC 02/06 INH 2150 Atorvastatin Calcium 80 MG 1700 01/29 1700 AC 02/06 PO 1741 Ciprofloxacin 500 MG BID 02/03 2200 AC 02/06 PO 02/07 Donepezil HCl 5 MG AT BEDTIME 01/29 2200 AC 02/06 PO 211 Hydrochlorothiazide 25 MG DAILY 01/29 1234 AC 02/06 PO 0842 Melatonin 10 MG AT BEDTIME 02/01 2200 AC 02/06 PO 211 Metoprolol Succinate 50 MG DAILY 01/29 1000 AC 02/06 PO 0843 Nystatin 1 JOCELYN TID 02/04 0300 AC 02/06 TOP 2118 Quetiapine Fumarate 25 MG AT BEDTIME 02/03 2200 AC 02/06 PO 2118 Quetiapine Fumarate 25 MG Q8P PRN 02/01 1845 AC 02/06 PO 1312 Rivaroxaban 20 MG 1700 01/29 1700 AC 02/06 PO 1741 Trazodone HCl 25 MG AT BEDTIME 02/05 2200 AC 02/06 PO 2118 Zinc Oxide 1 JOCELYN BID 02/04 1343 AC 02/06 TOP 2118 Assessment/Plan Assessment: Patient is a 89 YO M BIBA from [facility] with history of altered mental status. According to the ED document the staff from the facility told that patient was having temperature of 101.7 and was not able to take anything orally. Altered mental status Patient with history of dementia; AAO 3 at the time of our interview. * head CT ruled out any pathology. * Patient was from a dementia unit. Probably worsened with recent infection * Sitter in place. * Swallow evaluation passed for pureed and thin liquids. * Psych consulted - appreciate their recommendations. Health care acquired pseudomonas pneumonia Patient presented with temperature of 101.7. He does not report any urinary or respiratory symptoms. Labs unremarkable. He has received IV ceftriaxone and IV azithromycin in the ED. * Most probably aspiration pneumonia in the setting of altered mentation. * Continue ciprofloxacin 500mg BID for a total of 10days - till 02/11/17. * Sputum culture grew pseudomonas - pansenstive * Oxygen demand is still 3L. * Went for barium swallow evaluation - passed for pureed and thin liquids Rash in the genital region * desitin and nystatin powder hyponatremia - resolved Hypokalemia - resolved Alzheimer's dementia -depression * We will continue donepezil, Quetiapine, trazodone. * trazadone decreased to 25 mg from 50 mg Atrial fibrillation with controlled ventricular rate * We will continue tablet Xarelto 20 milligrams daily Hypertension * Restart quinupril - at discharge/if Blood pressure is very high. * continue metoprolol, hctz Hyperlipidemia * We will continue atorvastatin Diet- pureed and thin liquids DVT prophylaxis-ALP S/heparin CODE STATUS- Problem List: 1. Fever 2. Atrial fibrillation 3. Pneumonia 4. Alzheimer's dementia Pain Ratin Pain Location: n/a Pain Goal: Pain 4 or less Pain Plan: tylenol prn Tomorrow's Labs & Rationales: none Consulting Request: Consulting Specialty: Infectious Disease Consulting Physician: Dr. Gillis Reason for Consult: Aspiration pneumonia
[2017-02-06 13:46] VITALS: BP 126/78
--- NOTE | 2017-02-06 13:52 | PN- Pulmonary ---
Subjective HPI/Critical Care Issues: He is still asleep, altered and confused at times. Review of Systems Constitutional: Reports: see HPI. Comments: ROS negative except the above. Objective Current Medications: Current Medications Sig/Dora Start time Last Medication Dose Route Stop Time Status Admin Albuterol Sulfate 3 ML BID 02/05 2200 AC 02/06 INH 0901 Albuterol Sulfate 3 ML EVERY 4 HRS/AWAKE 01/30 2000 DC 02/05 INH 0844 Atorvastatin Calcium 80 MG 1700 01/29 1700 AC 02/04 PO 1621 Ciprofloxacin 500 MG BID 02/03 2200 AC 02/06 PO 02/07 2159 0842 Donepezil HCl 5 MG AT BEDTIME 01/29 2200 AC 02/05 PO 2155 Hydrochlorothiazide 25 MG DAILY 01/29 1234 AC 02/06 PO 0842 Melatonin 10 MG AT BEDTIME 02/01 2200 AC 02/05 PO 2156 Metoprolol Succinate 50 MG DAILY 01/29 1000 AC 02/06 PO 0843 Nystatin 1 JOCELYN TID 02/04 0300 AC 02/06 TOP 0840 Quetiapine Fumarate 25 MG AT BEDTIME 02/03 2200 AC 02/05 PO 2155 Quetiapine Fumarate 25 MG Q8P PRN 02/01 1845 AC 02/06 PO 1312 Rivaroxaban 20 MG 1700 01/29 1700 AC 02/05 PO 1619 Trazodone HCl 25 MG AT BEDTIME 02/05 2200 AC 02/05 PO 2155 Zinc Oxide 1 JOCELYN BID 02/04 1343 AC 02/06 TOP 0843 Vital Signs & I&O Last 24 Hrs of Vitals and I&O: Vital Signs Date Time Temp Pulse Resp B/P B/P Pulse O2 O2 Flow FiO2 Mean Ox Delivery Rate 02/06 1346 98.2 85 20 126/78 95 02/06 0902 94 Nasal 3.0L Cannula 02/06 0843 89 112/72 02/06 0800 Nasal 3.0L Cannula 02/06 0728 98.1 89 18 11272 96 Nasal 3.0L Cannula 02/06 0000 Nasal 2.0L Cannula 02/05 1818 98.4 85 20 120/68 96 02/05 1600 94 Nasal 3.0L Cannula 02/05 1400 128/64 Intake & Output 02/06 1600 02/06 0800 02/06 0000 Intake Total 240 600 Output Total 350 200 Balance -110 400 Intake, Oral 240 600 Output, Urine 350 200 Impression/Plan Impression/Plan Impression/Plan: Pt with dementia with AMS ISsues PNA prob pseudomonas Dementia worsening Rash Resolved hyponatremia and hypokalemia Dementia Afib HTN Hyperlipedemia REC cont abx watch mental status IF he is not sig somnolent put him back to trazadone 50 Will follow
[2017-02-06 22:02] VITALS: BP 120/72
--- NOTE | 2017-02-07 07:33 | PN- Housestaff ---
Subjective Follow-up For: Altered mental status Subjective: I saw and examined the patient today morning He is doing much better today. alert and oriented to person. Eager for discharge. Tried to communicate about discharge, no associated fever, chills overnight. Review of Systems Constitutional: Reports: see HPI. Objective Last 24 Hrs of Vital Signs/I&O Vital Signs Date Time Temp Pulse Resp B/P B/P Pulse O2 O2 Flow FiO2 Mean Ox Delivery Rate 02/07 0000 Nasal 3.0L Cannula 02/06 220 98.1 81 20 120/72 96 Nasal 4.0L Cannula 02/06 2155 93 Nasal 1.0L Cannula 02/06 1600 95 Nasal 3.0L Cannula 02/06 1346 98.2 85 20 126/78 95 02/06 0902 94 Nasal 3.0L Cannula 02/06 0843 89 112/72 02/06 0800 Nasal 3.0L Cannula Intake & Output 02/07 0800 02/07 0000 02/06 1600 Intake Total 600 500 Output Total 500 950 350 Balance -500 -350 150 Intake, Oral 600 500 Number 1 Bowel Movements Output, Urine 500 950 350 Physical Exam General Appearance: Alert, Cooperative, Mild Distress Skin: No Rashes, No Breakdown HEENT: Atraumatic, Hard of hearing Neck: Supple Cardiovascular: Normal S1, Normal S2 Lungs: Clear to Auscultation, Normal Air Movement Abdomen: Normal Bowel Sounds, Soft, No Tenderness Neurological: Normal Speech Extremities: No Clubbing, No Cyanosis Current Medications: Current Medications Sig/Dora Start time Last Medication Dose Route Stop Time Status Admin Albuterol Sulfate 3 ML BID 02/05 2200 AC 02/07 INH 0922 Atorvastatin Calcium 80 MG 1700 01/29 1700 AC 02/06 PO 1741 Ciprofloxacin 500 MG BID 02/03 2200 AC 02/07 PO 02/07 2159 0833 Donepezil HCl 5 MG AT BEDTIME 01/29 2200 AC 02/06 PO 211 Hydrochlorothiazide 25 MG DAILY 01/29 1234 AC 02/07 PO 0833 Melatonin 10 MG AT BEDTIME 02/01 2200 AC 02/06 PO 211 Metoprolol Succinate 50 MG DAILY 01/29 1000 AC 02/07 PO 0833 Nystatin 1 JOCELYN TID 02/04 0300 AC 02/07 TOP 0834 Quetiapine Fumarate 25 MG AT BEDTIME 02/03 2200 AC 02/06 PO 2119 Quetiapine Fumarate 25 MG Q8P PRN 02/01 1845 AC 02/06 PO 1312 Rivaroxaban 20 MG 1700 01/29 1700 AC 02/06 PO 1741 Trazodone HCl 25 MG AT BEDTIME 02/05 2200 AC 02/06 PO 2119 Zinc Oxide 1 JOCELYN BID 02/04 1343 02/07 TOP 0834 Assessment/Plan Assessment: Patient is a 89 YO M BIBA from [facility] with history of altered mental status. According to the ED document the staff from the facility told that patient was having temperature of 101.7 and was not able to take anything orally. Altered mental status Patient with history of dementia * Patient was from a dementia unit. * doing better today * Swallow evaluation passed for pureed and thin liquids. * Psych consulted - appreciate their recommendations. Health care acquired pseudomonas pneumonia Patient presented with temperature of 101.7. He does not report any urinary or respiratory symptoms. Labs unremarkable. He has received IV ceftriaxone and IV azithromycin in the ED. * Most probably aspiration pneumonia in the setting of altered mentation. * Continue ciprofloxacin 500mg BID for a total of 10days - till 02/11/17. * Sputum culture grew pseudomonas - pansenstive * Oxygen demand is still 3L. * Went for barium swallow evaluation - passed for pureed and thin liquids * Stable for discharge today. Rash in the genital region * desitin and nystatin powder hyponatremia - resolved Hypokalemia - resolved Alzheimer's dementia -depression * We will continue donepezil, Quetiapine, trazodone. * trazadone decreased to 25 mg from 50 mg Atrial fibrillation with controlled ventricular rate * We will continue tablet Xarelto 20 milligrams daily Hypertension * Restart quinupril - at discharge/if Blood pressure is very high. * continue metoprolol, hctz Hyperlipidemia * We will continue atorvastatin Diet- pureed and thin liquids DVT prophylaxis-ALP S/heparin CODE STATUS-FC Problem List: 1. Pneumonia 2. Fever 3. Hyponatremia Pain Ratin Pain Location: tylenol prn Pain Goal: Pain 4 or less Pain Plan: tylenol prn Tomorrow's Labs & Rationales: none Consulting Request: Consulting Specialty: Infectious Disease Consulting Physician: Dr. Gillis Reason for Consult: Aspiration pneumonia
[2017-02-07 07:46] VITALS: BP 110/62
--- NOTE | 2017-02-07 12:28 | PN- Pulmonary ---
Subjective HPI/Critical Care Issues: Much improved Less confused afebrile Offers no other complaints Poor historian Objective Current Medications: Current Medications Sig/Dora Start time Last Medication Dose Route Stop Time Status Admin Albuterol Sulfate 3 ML BID 02/05 220 AC 02/07 INH 0922 Atorvastatin Calcium 80 MG 1700 01/29 1700 AC 02/06 PO 1741 Ciprofloxacin 500 MG BID 02/03 220 AC 02/07 PO 02/07 2159 0833 Donepezil HCl 5 MG AT BEDTIME 01/29 2200 AC 02/06 PO 2119 Hydrochlorothiazide 25 MG DAILY 01/29 1234 AC 02/07 PO 0833 Melatonin 10 MG AT BEDTIME 02/01 2200 AC 02/06 PO 2119 Metoprolol Succinate 50 MG DAILY 01/29 1000 AC 02/07 PO 0833 Nystatin 1 JOCELYN TID 02/04 0300 AC 02/07 TOP 0834 Quetiapine Fumarate 25 MG AT BEDTIME 02/03 220 AC 02/06 PO 2119 Quetiapine Fumarate 25 MG Q8P PRN 02/01 1845 AC 02/06 PO 1312 Rivaroxaban 20 MG 17001/29 1700 AC 02/06 PO 1741 Trazodone HCl 25 MG AT BEDTIME 02/05 220 AC 02/06 PO 2119 Zinc Oxide 1 JOCELYN BID 02/04 1343 AC 02/07 TOP 0834 Vital Signs & I&O Last 24 Hrs of Vitals and I&O: Vital Signs Date Time Temp Pulse Resp B/P B/P Pulse O2 O2 Flow FiO2 Mean Ox Delivery Rate 02/07 0927 95 Nasal 2.0L Cannula 02/07 0833 97.8 86 22 110/62 02/07 0800 Nasal 3.0L Cannula 02/07 0746 97.8 86 22 110/62 96 Nasal 2.0L Cannula 02/07 0000 Nasal 3.0L Cannula 02/06 220 98.1 81 20 120/72 96 Nasal 4.0L Cannula 02/06 2155 93 Nasal 1.0L Cannula 02/06 1600 95 Nasal 3.0L Cannula 02/06 1346 98.2 85 20 126/78 95 Intake & Output 02/07 1600 02/07 0800 02/07 0000 Intake Total 600 Output Total 800 950 Balance -800 -350 Intake, Oral 600 Number 1 Bowel Movements Output, Urine 800 950 Impression/Plan Impression/Plan Impression/Plan: Pt with dementia with AMS ISsues PNA prob pseudomonas Dementia worsening Rash improved Resolved hyponatremia and hypokalemia Dementia Afib HTN Hyperlipedemia REC cont abx for a total of 10 days Appears to have improved and pt can be discharged today if bed available DC on current meds
[2017-02-07] MEDS ORDERED: CIPRO500 M1 PO (14:43)
[2017-02-07 14:47] VITALS: BP 122/80
[2017-02-07 15:40] VITALS: BP 122/80
== END 2017-02-07 11:28 | disposition home health service (06) | DRG 178 ==
LOC: ERH 20:30 → 2NB 01-29 00:50 → ERHI 01-29 00:50 → ENRESERV 01-29 02:41 → 2NB 01-29 03:45
PROVIDERS: Internal Medicine; Physician Assistant; ADMIT Internal Medicine
DX: J15.1 Pneumonia due to Pseudomonas (principal); E87.1 Hypo-osmolality and hyponatremia; F03.90 Unspecified dementia, unspecified severity, without behavioral disturbance, psychotic disturbance, mood disturbance, and anxiety; I48.91 Unspecified atrial fibrillation; J69.0 Pneumonitis due to inhalation of food and vomit; I10 Essential (primary) hypertension; E78.5 Hyperlipidemia, unspecified; I25.2 Old myocardial infarction; Z79.01 Long term (current) use of anticoagulants; K21.9 Gastro-esophageal reflux disease without esophagitis; H91.10 Presbycusis, unspecified ear; E87.6 Hypokalemia
CPT/HCPCS: 2NBP; 2NSBP; 36415; 74230; 81001; 82436; 87040; 87070; 87071; 87086; 87449; 87804; 87804-59; 93005; 93010; 96374; 97110-GO; 97116-GO; 97161-GP; 97530-GO; 99291; J0456; J0696; J0713; J1630; J1940; J3490; J7040